=== PATIENT | male | born 1970 | race Caucasian/White ===

== ENCOUNTER 2017-07-10 17:25 | Emergency (ER) | payer OTHER ==
[~2017-07-10] VITALS: Ht 180.3 cm; Wt 86.4 kg
[~2017-07-10 17:25] MED LIST: ATARAX; ATARAX 10MG10 MG/TAB PO; CELEBREX 1100 MG/CAP PO; NORCO 325 MG-51 TAB PO; PEN-VEE K500 MG PO; PROMETHAZINE12.5 M5 PO; ZANTAC 150150 MG PO; ZANTAC 150MG T150 MG PO; ZOFRAN 4MG T4 MG/TAB PO; ZYRTEC 10MG10 MG PO; ZYRTEC5 MG PO
[2017-07-10 17:26] VITALS: BP 117/81
[2017-07-10] MEDS ORDERED: LEXAPRO 5MG5 MG (17:30)
[2017-07-10] MEDS ORDERED: KLONOPIN 0.5MG0.5 MG PO (17:30)
[2017-07-10] MEDS ORDERED: DESYREL 50MG50 MG PO (17:30)
[2017-07-10] MEDS ORDERED: CATAPRES 0.1MG0.1 MG PO (17:30)
[2017-07-10] MEDS ORDERED: MELATONIN5 M1 PO (17:30)
[2017-07-10] MEDS ORDERED: LEXAPRO20 MG PO (17:54)
[2017-07-10] MEDS ORDERED: CATAPRES0.3 MG PO (17:56)
[2017-07-10] MEDS ORDERED: VITAMIN D31000 I1 PO (17:56)
[2017-07-10 17:57] LABS: INFLUENZA A NEGATIVE; INFLUENZA B NEGATIVE
[2017-07-10] MEDS ORDERED: ZITHROMAX Z PA250 MG PO (18:18)
[2017-07-10 18:35] VITALS: PULSE 95; TEMP 99.7
== END 2017-07-10 18:58 | disposition home or self-care (01) ==
LOC: COL.ER 17:25
PROVIDERS: Physician Assistant
DX: J20.9 Acute bronchitis, unspecified (principal); F43.10 Post-traumatic stress disorder, unspecified; F17.210 Nicotine dependence, cigarettes, uncomplicated; Z90.49 Acquired absence of other specified parts of digestive tract

== ENCOUNTER 2020-05-04 21:30 | Inpatient (IN) | payer OTHER ==
[~2020-05-04] VITALS: Ht 180.3 cm; Wt 98.8 kg
[~2020-05-04 21:30] MED LIST changes: +CATAPRES 0.1MG0.1 MG PO; +CATAPRES0.3 MG PO; +DESYREL 50MG50 MG PO; +KLONOPIN 0.5MG0.5 MG PO; +LEXAPRO 5MG5 MG; +LEXAPRO20 MG PO; +MELATONIN5 M1 PO; +VITAMIN D31000 I1 PO; +ZITHROMAX Z PA250 MG PO
[2020-05-04 22:37] LABS: BASO # 0.1 (0.0-0.2); BASO % 0.5 % (0.0-2.0); EOS # 0.2 (0.0-0.7); GRAN # 13.7 (1.4-6.5); GRAN % 77.7 % (42.2-75.2); HEMATOCRIT 40.9 % (42.0-52.0); HEMOGLOBIN 13.9 g/dl (13.5-18.0); LYMPH # 2.5 (1.2-3.4); LYMPH % 14.2 % (20.0-51.0); MEAN CELL VOLUME 88 fl (80.0-100.0); MEAN CORPUSCULAR HEMOGLOBIN 30 pg (27.0-31.0); MEAN CORPUSCULAR HGB CONC 34 g/dl (33.0-37.0); MEAN PLATELET VOLUME 9.3 fl (7.4-10.4); MONO # 1.1 (0.1-0.6); MONO % 6.2 % (1.7-9.3); PLATELET COUNT 219 K/mm3 (130-400); RED BLOOD COUNT 4.64 M/mm3 (4.20-5.60)
[2020-05-04 22:46] LABS: ALANINE AMINOTRANSFERASE 26 U/L (4-49); ALBUMIN 4.3 gm/dL (3.5-5.0); ALKALINE PHOSPHATASE 111 U/L (50-136); ANION GAP 8 mmol/L (7-16); AST,SGOT 40 U/L (15-37); BILIRUBIN,TOTAL 2.5 mg/dL (0.0-1.0); BLOOD UREA NITROGEN 12 mg/dL (9-20); CALCIUM 9.2 mg/dL (8.4-10.2); CARBON DIOXIDE 27 mmol/L (22-30); CHLORIDE 104 mmol/L (98-107); CREATININE, serum 0.86 (0.66-1.25); GLUCOSE 156 mg/dL (74-106); LIPASE 32 U/L (23-300); POTASSIUM 3.7 mmol/L (3.4-5.0); SODIUM 138 mmol/L (137-145); TOTAL PROTEIN 7.8 gm/dL (6.4-8.2)
[2020-05-04 22:56] LABS: C-REACTIVE PROTEIN 26.3 mg/dL (0.0-0.9); TROPONIN-I < 0.012 ng/mL (0.000-0.035)
[2020-05-05] VITALS (13 sets, daily range): BP systolic 111–138; BP diastolic 65–85; PULSE 66–96; TEMP 97.5–98.7
[2020-05-05 00:01] LABS: COLLECTION METHOD CLEAN CATCH
[2020-05-05 00:14] LABS: MUCOUS Present /lpf; PH 6 (5-8); SQUAMOUS EPITHELIAL None Seen /hpf; URINE APPEARANCE Clear; URINE BACTERIA None Seen /hpf; URINE BILIRUBIN Negative (NEGATIVE); URINE BLOOD 2+ (NEGATIVE); URINE COLOR Yellow; URINE GLUCOSE Negative (NEGATIVE); URINE KETONE Trace (NEGATIVE); URINE LEUKOCYTE ESTERASE Negative (NEGATIVE); URINE NITRATE Negative (NEGATIVE); URINE PROTEIN(semi-quant) Negative (NEGATIVE); URINE UROBILINOGEN >=4.0 mg/dL (NEGATIVE)
--- NOTE | 2020-05-05 03:40 | NUR ---
Admitted to medical floor from OR-PACU, went from ER straight to surgery- had diagnostic laproscopy w/washing and garret drain placed-- VSS, states abd pain 7/10 after coughing, will give Dilaudid as ordered- active bowel sounds- wants jello-given,, IV fluids of LR at 100cc/hr to L/AC IV site, abd w/ 3 lap sites, glued- has garret drain ,no drainage at this time- was emptied in PACU.. No void yet- urinal at bedside
--- NOTE | 2020-05-05 06:17 | NUR ---
Resting- and pain 12/02-was given Dilaudid IV x2 since back from PACU- respiratory will bring up IS, pt C&DB , IV fluids at 100cc/hr, no void yet post-op, lap sites goodx3 no drainage- Praveen drain with scant drainage{was drained by PACU for 80cc}
--- NOTE | 2020-05-05 08:39 | NUR ---
Pt assessment complete. Pt sitting up in bed upon entry, he is A/O x4. His breathing is guarded due to pain. PRN Dilaudid administered and Percocet approximately 30 minutes later for continues pain. Pt is distended, +BS. Compression drain in place. Site CDI. Some nausea, but does not require Zofran. Has had a lot of intake since surgery. No BM. New IV started to Rhand. IVF infusing into RAC. No needs at this time. Call light within reach.
[2020-05-05 13:10] LABS: BASO % 0.2 % (0.0-2.0); GRAN # 10.5 (1.4-6.5); GRAN % 86.8 % (42.2-75.2); HEMATOCRIT 37.6 % (42.0-52.0); HEMOGLOBIN 12.5 g/dl (13.5-18.0); LYMPH # 1.2 (1.2-3.4); LYMPH % 10.2 % (20.0-51.0); MEAN CELL VOLUME 91 fl (80.0-100.0); MEAN CORPUSCULAR HEMOGLOBIN 30 pg (27.0-31.0); MEAN CORPUSCULAR HGB CONC 33 g/dl (33.0-37.0); MEAN PLATELET VOLUME 9.4 fl (7.4-10.4); MONO # 0.3 (0.1-0.6); MONO % 2.3 % (1.7-9.3); PLATELET COUNT 204 K/mm3 (130-400); RED BLOOD COUNT 4.15 M/mm3 (4.20-5.60)
[2020-05-05 13:27] LABS: ALBUMIN 3.8 gm/dL (3.5-5.0); BILIRUBIN,TOTAL 1.4 mg/dL (0.0-1.0); CALCIUM 8.6 mg/dL (8.4-10.2); CREATININE, serum 0.79 (0.66-1.25); POTASSIUM 4.2 mmol/L (3.4-5.0)
--- NOTE | 2020-05-05 13:47 | NUR ---
Director Radiation Oncology met with patient to discuss discharge planning. Patient lives in [place] with his four children ages 17, 16, 14, and 9. Patient has a fiance, Trinidad (ph#[phone]). Patient states his three years ago and his mother in law, Rama (ph#[phone]) is his DPOA-HC. Patient goes to [facility] for primary care and obtains medications from [facility]. Patient uses a CPAP and no other DME. Patient is independent with ADLS and plans to return home upon discharge. SW will continue to follow as needed.
--- NOTE | 2020-05-05 17:58 | NUR ---
Pt c/o epigastric midline pain, 11/01. PRN PO pain medications administered. Advised patient if pain worsens or does not improve to notify nursing staff. Does report passing gas. Pt encouraged to ambulate, pt requesting to do this tomorrow. Discussed with patient the benefit vs risk of this, pt agreaable to attempt to ambulate tonight. Will allow time for pain medications to take effect prior to getting out of bed. Will check back before shift change.
--- NOTE | 2020-05-05 18:36 | NUR ---
Pt up ambulating with fiance in hallways. Praveen drain secured to gown.
--- NOTE | 2020-05-05 19:45 | NUR ---
Pt was settled on his bed when this nurse went for a bedside handover. No further needs at this time.
[2020-05-06] VITALS (7 sets, daily range): BP systolic 97–123; BP diastolic 50–77; PULSE 54–99; TEMP 97.9–100.3
--- NOTE | 2020-05-06 02:58 | NUR ---
Pt assessment completed and charted. Meds provided as per AUG, tolerated well. Pt is settled on his bed, call light is on reach. No further needs at this time.
[2020-05-06 06:22] LABS: BASO % 0.4 % (0.0-2.0); EOS # 0.2 (0.0-0.7); EOS % 2.3 % (0-4.0); GRAN # 6.1 (1.4-6.5); GRAN % 60.6 % (42.2-75.2); HEMOGLOBIN 11.2 g/dl (13.5-18.0); LYMPH % 29.7 % (20.0-51.0); MEAN CELL VOLUME 90 fl (80.0-100.0); MEAN CORPUSCULAR HEMOGLOBIN 29 pg (27.0-31.0); MEAN CORPUSCULAR HGB CONC 33 g/dl (33.0-37.0); MEAN PLATELET VOLUME 9.4 fl (7.4-10.4); MONO # 0.7 (0.1-0.6); MONO % 6.6 % (1.7-9.3); PLATELET COUNT 194 K/mm3 (130-400); RED BLOOD COUNT 3.82 M/mm3 (4.20-5.60); REDCELL DISTRIBUTION WIDTH-CV 13.1 % (11.5-14.5)
[2020-05-06 06:24] LABS: HEMATOCRIT 34.5 % (42.0-52.0)
[2020-05-06 06:37] LABS: ALBUMIN 3.1 gm/dL (3.5-5.0); BILIRUBIN,TOTAL 0.8 mg/dL (0.0-1.0); CALCIUM 8.2 mg/dL (8.4-10.2); CREATININE, serum 0.84 (0.66-1.25); POTASSIUM 3.9 mmol/L (3.4-5.0); TOTAL PROTEIN 5.8 gm/dL (6.4-8.2)
--- NOTE | 2020-05-06 07:35 | NUR ---
Pt had an uneventful night, slept through out the night. Meds provided as per AUG. No further needs at this time.
--- NOTE | 2020-05-06 09:44 | NUR ---
PATIENT IS LAYING IN BED WITH HIS HOB INCREASED. PATIENT IS PASSING GAS BUT HAS NOT HAD A BOWEL MOVEMENT.
--- NOTE | 2020-05-06 13:48 | NUR ---
Primary nurse was assisted with [phone] patient care by [employer] student Tal Stratton and [employer] instructor Tifafny Jeter RN-.
--- NOTE | 2020-05-06 18:28 | NUR ---
PATIENT HAS HAD A PRETTY UNEVENTFUL DAY. PATIENT HAS REPORTED SOME PAIN BUT TORADOL AND PERCOCET WAS ABLE TO MANAGE HIS PAIN TODAY. PATIENT DID HAVE A BOWEL MOVEMENT TODAY THAT HE REPORTED PRETTY LOOSE. PATIENT'S DIET HAS BEEN ADVANCED TO A LOW FIBER DIET. PATIENT HAS ZOSYN RUNNING IN HIS IV BUT THEN LR IS INFUSING AT 100 MLS/HR. INCISIONS ARE CLEAN, DRY, AND INTACT. DRAIN IS STILL IN PLACE AND DRAINING. PATIENT TOOK A SPONGE BATH TODAY. PATIENT REFUSED NICODERM PATCH BECAUSE FIANCE BROUGHT HIS LOUCENGES. PATIENT DENIES ANY NEEDS AT THIS TIME. WILL REPORT OFF TO LOCK MASTER.
[2020-05-07] VITALS (20 sets, daily range): BP systolic 76–126; BP diastolic 49–67; PULSE 71–118; TEMP 98.7–102.9
[2020-05-07 07:10] LABS: ALBUMIN 2.7 gm/dL (3.5-5.0); CALCIUM 7.8 mg/dL (8.4-10.2); CREATININE, serum 1.12 (0.66-1.25); POTASSIUM 4.1 mmol/L (3.4-5.0); TOTAL PROTEIN 5.2 gm/dL (6.4-8.2)
--- NOTE | 2020-05-07 07:42 | NUR ---
Pt had an eventful night. Pressures remained low through the night, contacted provider who ordered a bolus. Pressures still remained low after initial bolus, so provider ordered hetastarch bolus. Pt became diaphoretic and very dry mouth throughout the night. Pt did desat to 88%, so 1L nc was placed on the patient to bring up his saturations. Pt did state he felt very poorly and that he would like to figure out what is going on, and why his pressures are so low. Pt has a JESUS drain that had purulent yellow drainage. This drain had an output of 350 through the night, and the patient had significant pain in the abdomen. It was soft, and not tender to touch. There are no other concerns. Report was given to GI Rodriguez.
--- NOTE | 2020-05-07 08:46 | NUR ---
Patient having increased pain. 02/01. Kidney function WNL. Am toradol & lovenox given by student nurse assisting in cares. called and notfied on patient conditions. He is aware of increased temp. Blood pressure improving. Not tachycardic. Patient Jesus drain sponge changed & JESUS drain having purulent/serous output. Lab called & made them aware of added on lactic & needing results on hemotology. Patient Ivf continue at 150ml/hr. Patient concerned about his dry mouth. Patient made aware of improtance of strict I&O & needing to use urinal to measure urine. Patient back to clears lisa to pain. Will closely montior.
[2020-05-07 09:06] LABS: BASO # 0.1 (0.0-0.2); BASO % 0.4 % (0.0-2.0); EOS # 0.3 (0.0-0.7); EOS % 2.4 % (0-4.0); GRAN # 10.4 (1.4-6.5); GRAN % 75.4 % (42.2-75.2); HEMOGLOBIN 10.4 g/dl (13.5-18.0); LYMPH % 14.8 % (20.0-51.0); MEAN CELL VOLUME 93 fl (80.0-100.0); MEAN CORPUSCULAR HEMOGLOBIN 30 pg (27.0-31.0); MEAN CORPUSCULAR HGB CONC 32 g/dl (33.0-37.0); MEAN PLATELET VOLUME 9.7 fl (7.4-10.4); MONO # 0.9 (0.1-0.6); MONO % 6.6 % (1.7-9.3); PLATELET COUNT 187 K/mm3 (130-400); RED BLOOD COUNT 3.47 M/mm3 (4.20-5.60); REDCELL DISTRIBUTION WIDTH-CV 13.2 % (11.5-14.5)
[2020-05-07 09:28] LABS: HEMATOCRIT 32.2 % (42.0-52.0)
--- NOTE | 2020-05-07 09:59 | NUR ---
Lactic & Wbc results called to . No new orders at this time
--- NOTE | 2020-05-07 11:34 | NUR ---
Initial visit; Patient thanked Chargeback Specialist for looking in on him and offering God's blessings and keeping him in her prayers.
--- NOTE | 2020-05-07 12:32 | NUR ---
rounded. Plan of care reviewed. Again reviewed with patient, visitor policy being 8 to 8. He is understanding. He continue to tolerate clears. Percocet for pain & fever. He continues to have low grade temp.
--- NOTE | 2020-05-07 13:32 | NUR ---
Primary nurse was assisted with [id number] patient care by [employer] student Tal Stratton and [employer] instructor Tiffany Jeter RN-.
--- NOTE | 2020-05-07 16:49 | NUR ---
Patient shivering. Temp increasing. 100.3. Next dose of percocet given with rating 6/10. Called doctor Alexa to give him an update. Orders obtained. Lab called for blood cultures & Wanda in CT to retreive patient for stat CT scan ordered. Patient continues to have purulent tinged Nadeem drain output. He is voiding adequately. Ivf infusing per orders. He did have complaints of nausea medicated with zofran per orders. Will await CT scan results.
--- NOTE | 2020-05-07 18:31 | NUR ---
Spoke again to . Made him aware of temp of 102.7. Tachycardic 116. Patient to begin vancocin & diflucan. Patient pain continues to be elevated. /. Dilaudid & toradol given per orders.
--- NOTE | 2020-05-07 19:22 | NUR ---
Vancomycin Initial Dosing Pharmacy Note Ordering provider: Ant Liu MD Indication/duration: Diverticulitis s/p washout, fever 102.9, increasing HR and RR Relevant comorbidities: LABS: SCr 1.12 and rising daily since admission, eCrCl ~90 mL/min today Recommendation: Loading dose: 2 grams on 05/07/20 Maintenance dose: 1.25 grams every 12 hours Trough goal: 15-20 ug/mL Pharmacy will continue to follow closely. Consider switching antibiotics to meropenem is condition deteriorates.
--- NOTE | 2020-05-07 19:30 | NUR ---
notifed of patient status. Continues tachycardia. Fever. Increase in O2 needs. Patient pain a 5/10 now. Diaphoretic. We discussed drain output. Ct scan results. Hospitalist consulted. notifed and patient reviewed in detail. Labs ordered. supervisor assembling also given an update on patient status. Bedside report was given to nirmala
[2020-05-07 20:01] LABS: BASO # 0.1 (0.0-0.2); BASO % 0.3 % (0.0-2.0); EOS # 0.4 (0.0-0.7); GRAN # 14.8 (1.4-6.5); GRAN % 84.4 % (42.2-75.2); HEMOGLOBIN 11.7 g/dl (13.5-18.0); LYMPH # 1.3 (1.2-3.4); LYMPH % 7.4 % (20.0-51.0); MEAN CELL VOLUME 91 fl (80.0-100.0); MEAN CORPUSCULAR HEMOGLOBIN 30 pg (27.0-31.0); MEAN CORPUSCULAR HGB CONC 33 g/dl (33.0-37.0); MEAN PLATELET VOLUME 9.1 fl (7.4-10.4); MONO % 5.4 % (1.7-9.3); PLATELET COUNT 197 K/mm3 (130-400); RED BLOOD COUNT 3.91 M/mm3 (4.20-5.60); REDCELL DISTRIBUTION WIDTH-CV 13.2 % (11.5-14.5)
[2020-05-07 20:07] LABS: CREATININE, serum 0.93 (0.66-1.25); POTASSIUM 3.5 mmol/L (3.4-5.0)
[2020-05-07 20:12] LABS: HEMATOCRIT 35.4 % (42.0-52.0)
--- NOTE | 2020-05-07 20:16 | NUR ---
rounded. Orders obtained. UA collected. Nadeem drain output collected. Consent obtained. Patient denies questions or concerns. His supportive fiance at bedside. Patient aware he needs to now be NPO. Shannan to resumes cares
[2020-05-07 20:29] LABS: COLLECTION METHOD CLEAN CATCH
--- NOTE | 2020-05-07 20:45 | NUR ---
Pt off to OR at this time.
[2020-05-07 20:50] LABS: PH 5 (5-8); SQUAMOUS EPITHELIAL None Seen /hpf; URINE APPEARANCE Clear; URINE BACTERIA None Seen /hpf; URINE BILIRUBIN Negative (NEGATIVE); URINE BLOOD 2+ (NEGATIVE); URINE COLOR Yellow; URINE GLUCOSE Negative (NEGATIVE); URINE KETONE Negative (NEGATIVE); URINE LEUKOCYTE ESTERASE Negative (NEGATIVE); URINE NITRATE Negative (NEGATIVE); URINE PROTEIN(semi-quant) Negative (NEGATIVE); URINE RBC 0-2 /hpf; URINE UROBILINOGEN Negative (NEGATIVE); URINE WBC 0-2 /hpf
--- NOTE | 2020-05-07 22:09 | NUR ---
Report given to GI Ordaz
[2020-05-08] VITALS (90 sets, daily range): BP systolic 90–125; BP diastolic 52–90; PULSE 109–123; TEMP 98.5–103.1; O2SAT 92–99
--- NOTE | 2020-05-08 00:50 | NUR ---
PT ARRIVED TO ROOM FROM PACU, PT ALERT AND ORIETNED X4, DROWSY, IMPULSIVE. PT NOTED WITH TEMP OF 103.1, PRN TYLNEOL GIVEN. NEW COLOSTOMY SITE WITH PINK STOMA, BLOOD NOTED TO BAG, DRESSING WITH BRIGHT RED DRAINAGE NOTED AND SHADOWED. LR RUNNING AT 150ML/HR AND FENTANYL EPIDURAL IN PLACE TO BACK RUNNING CONITNOUSLY AT THIS TIME. PT ORIENTED TO ROOM. STATES THAT HE HAS TO PEE, REMINDED PT THAT HE HAS A HUDSON, SMALL AMOUNT OF SHAKIR URINE NOTED TO HUDSON BAG AT TIME OF ARRIVAL. SPOKE WITH ESAU PHYSICIAN, STATES TO REPEAT LABS AND CALL FOR URINE OUTPUT LESS THAN 50CC/HR, CONTINUE IV FLUIDS AND IV ZOSYN.
--- NOTE | 2020-05-08 02:05 | NUR ---
DR. CLARK CALLED, OK TO TRANSFER TO SURGICAL FLOOR.
[2020-05-08 03:21] LABS: HEMATOCRIT 41.6 % (42.0-52.0); MEAN CELL VOLUME 90 fl (80.0-100.0); MEAN CORPUSCULAR HEMOGLOBIN 30 pg (27.0-31.0); MEAN CORPUSCULAR HGB CONC 33 g/dl (33.0-37.0); PLATELET COUNT 246 K/mm3 (130-400); RED BLOOD COUNT 4.63 M/mm3 (4.20-5.60); REDCELL DISTRIBUTION WIDTH-CV 13.1 % (11.5-14.5)
[2020-05-08 03:27] LABS: CALCIUM 7.7 mg/dL (8.4-10.2); CREATININE, serum 0.91 (0.66-1.25); POTASSIUM 3.7 mmol/L (3.4-5.0)
--- NOTE | 2020-05-08 03:30 | NUR ---
Pt arrived to the floor via stretcher. Pt was transported to the room bed by staff members. Pt was encourged to take deep breaths. Pt incision site had a small amount of drainage which was noted on arrival. Pt urine is a peach color but clear. Pt has been able to tolerate a few ice chips. Pt epidural is still in place and infusing. Pt currently has Zosyn and LR infusing. Pt has no other concerns at this time. Pt temperature is currently at 101.9 pt will closely be monitored for a spike in his temp. Pt has his call light within reach and his bed is in lowest position.
[2020-05-08 03:35] LABS: HEMOGLOBIN 13.9 g/dl (13.5-18.0)
[2020-05-08 03:53] LABS: BAND 12 % (0-10); LYMPHOCYTE 7 % (20.0-51.0); NEUTROPHILS 80 % (42.0-75.2); PLATELET ESTIMATE NORMAL (NORMAL)
--- NOTE | 2020-05-08 07:20 | NUR ---
Pt is curretly resting in bed. I reported off to GI Bangura. Pt has no compliants of pain of pain.
[2020-05-08 08:31] LABS: BASO # 0.1 (0.0-0.2); BASO % 0.3 % (0.0-2.0); EOS % 0.1 % (0-4.0); GRAN % 84.6 % (42.2-75.2); HEMATOCRIT 40.9 % (42.0-52.0); HEMOGLOBIN 13.6 g/dl (13.5-18.0); LYMPH % 8.9 % (20.0-51.0); MEAN CELL VOLUME 91 fl (80.0-100.0); MEAN CORPUSCULAR HEMOGLOBIN 30 pg (27.0-31.0); MEAN CORPUSCULAR HGB CONC 33 g/dl (33.0-37.0); MEAN PLATELET VOLUME 9.3 fl (7.4-10.4); MONO # 1.2 (0.1-0.6); MONO % 5.3 % (1.7-9.3); PLATELET COUNT 275 K/mm3 (130-400); RED BLOOD COUNT 4.52 M/mm3 (4.20-5.60); REDCELL DISTRIBUTION WIDTH-CV 13.2 % (11.5-14.5)
[2020-05-08 08:54] LABS: ALBUMIN 2.8 gm/dL (3.5-5.0); BILIRUBIN,TOTAL 1.4 mg/dL (0.0-1.0); CALCIUM 7.9 mg/dL (8.4-10.2); CREATININE, serum 0.95 (0.66-1.25); POTASSIUM 3.8 mmol/L (3.4-5.0); TOTAL PROTEIN 5.4 gm/dL (6.4-8.2)
--- NOTE | 2020-05-08 11:55 | NUR ---
PATIENT'S TEMP WENT UP TO 100.9, PATIENT DENIES FEELING HOT, NOT CURRENTLY DIAPHORETIC, ROOM TEMP DOWN, FAN ON PATIENT. GAVE PRN TYLENOL, TWO TABS. WILL MONITOR. PATIENT SLEEPING.
--- NOTE | 2020-05-08 19:49 | NUR ---
PT REPORTS NAUSEA, NO EMESIS. IS ALERT AND ORIENTED X4, IRAM (S.O) AT BEDSIDE. HAS IVF TO RIGHT FOREARM INFUSING, AREA SWOLLEN AND SITED DC'D WITH ANGIOCATH INTACT. HAS IV SITE TO RIGHT AC AND CONNECTED IVF TO THIS, INFUSING WITHOUT PROBLEM. ZOFRAN GIVEN FOR NAUSEA. ABD DISTENDED WITH SCANT BOWEL SOUNDS NOTED. PT GRUNTING WITH RESPIRATIONS DUE TO PAIN IN ABD, 8/10. HAS EPIDURAL INFUSING AT 8ML/HR AND HAS USED BOLUS SEVERAL TIMES. ABLE TO MINIMALLY ROLL TO SIDE TO VISUALIZE EPIDURAL SITE. HAS HOB AT 30 DEGREES. WEARING OXYGEN AT 2L/NC. OSTOMY WITH MINIMAL LIQUID DRAINAGE IN BAG, STOMA RED. HUDSON TO BSD WITH LIGHT SHAKIR URINE. HAS SL TO LEFT AC FLUSHES WELL. USING IS OCCASIONALLY, UNABLE TO TAKE DEEP INSPIRATION.
--- NOTE | 2020-05-08 20:15 | NUR ---
TYLENOL GIVEN FOR FEVER.
--- NOTE | 2020-05-08 20:58 | NUR ---
Spoke with patient and significant other regarding visiting hours. They relay Dr Mast okayed for her to spend the night to "aid in patients recovery". Did speak with athlete manager Anne Hernandez regarding significant other spending the night and request was denied. Relayed information to pt and S.O. and discussed visitor policy again at this time.
--- NOTE | 2020-05-08 21:39 | NUR ---
PHENERGAN 12.5MG IV PIGGYBACK GIVEN FOR CONTINUED COMPLAINT OF NAUSEA. DISCUSSED NGT POSSIBILITY, PT REPORTS HE DOESN'T WANT THAT AT THIS TIME.
[2020-05-09 00:06] VITALS: BP 105/77; PULSE 112; TEMP 101.6
--- NOTE | 2020-05-09 00:21 | NUR ---
RESPIRATIONS LESS LABORED AND APPEARS TO BE TRYING TO SLEEP. IV ANTIBIOTIC CONNECTED TO LEFT AC IV SITE AND INFUSING WITHOUT PROBLEM. STILL HAS A FEVER 101.6, TOO EARLY FOR TYLENOL.
--- NOTE | 2020-05-09 03:00 | NUR ---
PT ASKING FOR PAIN AND NAUSEA MEDS. ABD DISTENDED WITH ABSENT BOWELS SOUNDS NOTED AT THIS TIME.
--- NOTE | 2020-05-09 03:20 | NUR ---
REPOSITIONED UP IN BED WITH ASSIST OF 2. STILL GRUNTING WITH BREATHS WITH MOVEMENT. MEDICATED WITH PHENERGAN IV PRIOR TO MOVING FOR CONTINUED NAUSEA. EMPTIED 30CC OF THIN FLUID FROM OSTOMY AT THIS TIME.
[2020-05-09 03:23] VITALS: BP 118/79; PULSE 112; TEMP 99.3
--- NOTE | 2020-05-09 03:29 | NUR ---
Pt still grunting with respirations and rates pain 9/10. Placed on continuous pulse ox and medicated with Morphine 4mg IVP at this time.
--- NOTE | 2020-05-09 04:00 | NUR ---
PT REPORTS "SOME" RELIEF OF PAIN WITH MORPHINE.
--- NOTE | 2020-05-09 06:00 | NUR ---
URINE OUTPUT IMPROVED AND COLOR IS NETWORK AND THREAT SUPPORT SPECIALIST. STILL HAVING NAUSEA AND PAIN. OSTOMY WITH NO FURTHER OUTPUT.
[2020-05-09 07:19] LABS: HEMATOCRIT 38.6 % (42.0-52.0); MEAN CELL VOLUME 91 fl (80.0-100.0); MEAN CORPUSCULAR HEMOGLOBIN 31 pg (27.0-31.0); MEAN CORPUSCULAR HGB CONC 34 g/dl (33.0-37.0); MEAN PLATELET VOLUME 9.3 fl (7.4-10.4); PLATELET COUNT 275 K/mm3 (130-400); RED BLOOD COUNT 4.24 M/mm3 (4.20-5.60); REDCELL DISTRIBUTION WIDTH-CV 13.3 % (11.5-14.5)
[2020-05-09 07:24] LABS: MAGNESIUM 1.8 mg/dL (1.6-2.3); POTASSIUM 3.7 mmol/L (3.4-5.0)
[2020-05-09 07:39] VITALS: BP 114/73; PULSE 107; TEMP 101.4
--- NOTE | 2020-05-09 08:13 | NUR ---
Patient resting in bed. Complaints of pain and nausea. Zofran given and epidural bolus dose given with his patient controlled button. Epidrual infuses at 8ml/hr. Ng to DD, urine output adequate. Patient abdomen is distended. Bowels quiet. Colostomy with no output. Really educated and reviewed with patient the importance of coughing,deep breathing & using his IS. He was aware that splinting his abdomen with pillow can be helpful. We discussed importamce of getting out of bed today. He is willing to try once his significant other arrives today. Gave his Mother in law Radha and update on the phone. Patient also given a colostomy education packet, will try to educate more when significant other arrives. Scds ble. Will continue to closely monitor.
[2020-05-09 10:42] VITALS: BP 128/80; PULSE 112; TEMP 100
--- NOTE | 2020-05-09 10:45 | NUR ---
Matilda significant other at bedside. has rounded. Anesthesia made adjustments to the epidraul settings. infusing now at a high rate 11ml/hr. Dressing to back CDI. Patient up to the chair. He was a 2 assist, nausea with activity, no emesis. Belching noted. He remains NPO. Patient brushed his teeth. He was given a full bed bath, harper care provided & new linens. Patient using his IS correctly. He wanted to get back to bed, encouraged him to sit up in chair for at least one hour.
--- NOTE | 2020-05-09 11:45 | NUR ---
Patient not wanting to sit up in chair any longer. Patient assisted back to bed and did well. Still having abdominal pain & nausea. Significant other at bedside.
[2020-05-09 15:18] VITALS: BP 123/79; PULSE 104; TEMP 100.5
--- NOTE | 2020-05-09 17:00 | NUR ---
given updated vitals. He is aware of continued low grade temp after tylenol & slight tachycardia. We also discussed his quiet bowels & continued belching. Protonix given per orders. Benydrl IV also given for the reddness to his hands & the history patient has of angioedema.
--- NOTE | 2020-05-09 19:39 | NUR ---
Patient sat up in chair again this evening. He did much better when up this time. Less pain. Still having nausea, but slightly improved. Zofran per orders. Abdomen remains distended. bowels quiet. New colostomy appliace applied. No skin irritations noted. Stoma pink, some mucous present. 10mls of watery output with slight odor. Patient given education, he was willing to listen & try to learn. midline incision dressing changed with gauze & paper tape. Palatine intact with slight drainage. Iv antibioitcs & fluids continue. Ng to DD with josiane output. Scds ble. He continues to use IS. was notifed of patient condition/history of angioedema. Patient having concerns about the reddness on his hand and some reddness noted to his face. He has taken zyrtec & attrax for 25 years to prevent reoccurance and has concerns about missed does. Orders to continue both medications after Iv benydryl did not help in the reddness to his hands. Anesthesia Rom way also made aware. Continous pulse ox on patient to closely monitor O2 sats. His supportive significant other at bedside.
[2020-05-09 20:29] VITALS: BP 116/75; PULSE 100; TEMP 98.6
--- NOTE | 2020-05-09 22:48 | NUR ---
Atarx and zyrtec given. Patient says it will take a little bit to get in his system and get caught up. Patient still on continuous pulse oxymetry monitoring. Zofran given for nausea. Some air was noted in the ostomy bag. Patient is alert and oriented.
[2020-05-10] VITALS (12 sets, daily range): BP systolic 91–143; BP diastolic 70–82; PULSE 77–114; TEMP 98.3–100.4
--- NOTE | 2020-05-10 03:24 | NUR ---
EPIDURAL CASSETTE IS EMPTY, ANESTHESIA PAGED.
--- NOTE | 2020-05-10 03:28 | NUR ---
RETURN CALL FROM [facility], NOTIFIED OF EPIDURAL CASSETTE. WILL CHECK WITH NUT SORTER OPERATOR IF PHARMACY HAS ANOTHER CASSETTE AVAILABLE AND CALL HIM BACK.
--- NOTE | 2020-05-10 04:44 | NUR ---
Rom Eduardo in to refill epidural. Directed to take Hourly blood pressures and call if systolic is under 100. Patient still in pain but states it is getting better.
--- NOTE | 2020-05-10 06:02 | NUR ---
Patient had 450 ml of output from his harper and some air out of his colostomy. Patient still denies the need for morphine.
[2020-05-10 06:47] LABS: HEMATOCRIT 37.6 % (42.0-52.0); HEMOGLOBIN 11.9 g/dl (13.5-18.0); MEAN CELL VOLUME 93 fl (80.0-100.0); MEAN CORPUSCULAR HEMOGLOBIN 30 pg (27.0-31.0); MEAN CORPUSCULAR HGB CONC 32 g/dl (33.0-37.0); MEAN PLATELET VOLUME 9.5 fl (7.4-10.4); PLATELET COUNT 278 K/mm3 (130-400); RED BLOOD COUNT 4.03 M/mm3 (4.20-5.60); REDCELL DISTRIBUTION WIDTH-CV 13.4 % (11.5-14.5)
[2020-05-10 06:56] LABS: CALCIUM 7.8 mg/dL (8.4-10.2); CREATININE, serum 1.01 (0.66-1.25); POTASSIUM 3.6 mmol/L (3.4-5.0)
--- NOTE | 2020-05-10 09:18 | NUR ---
PT IS A&O. NOTED A LOW GRADE TEMP OF 99.7, GAVE PRN TYLENOL. VSS. HEAD AND TOE ASSESSMENT COMPLETE SEE NOTES. COLEOSTOMY PRODUCING GAS AND SMALL AMOUNTS OF LIQUID BROWN STOOL. HUDSON TO DEPENDENT DRAINAGE WITH CLEAR YELLOW URINE. EPIDURAL RUNNING AT 10CC/HR. PT NPO. PICC LINE WILL BE PLACED TODAY THEN RECIEVE TPN. PAIN CONTROLLED. IV IN L AND R AC. PT SITTING UP IN BED WITH CALL LIGHT IN REACH.
--- NOTE | 2020-05-10 10:00 | NUR ---
Actor Understudy met with the patient to follow up with the patient. The patient plans to return home at discharge. SW contacted the patient's Trinidad herrera to follow up regarding the discharge plan, left message. SW staffed with the patient's nurse. The patient to get a PICC placed for TPN.
--- NOTE | 2020-05-10 10:12 | NUR ---
Initial visit; Patient thanked Film Touch Up Inspector for looking in on him and offering God's blessings and to keep him in her prayers.
[2020-05-10 11:42] LABS: ALBUMIN 2.8 gm/dL (3.5-5.0); BILIRUBIN,TOTAL 0.8 mg/dL (0.0-1.0); CALCIUM 7.9 mg/dL (8.4-10.2); CREATININE, serum 1.02 (0.66-1.25); POTASSIUM 3.8 mmol/L (3.4-5.0); TOTAL PROTEIN 5.7 gm/dL (6.4-8.2)
[2020-05-10 11:49] LABS: PRE ALBUMIN 6.6 mg/dL (17.6-36.0)
--- NOTE | 2020-05-10 20:30 | NUR ---
Pt currently lying in bed. Pt spouse was at his bedside but she went home. The only request the pt had was ice chips. Pt has his call light within reach and his bed is in lowest position. Pt had minimal output from his colostomy at this time.
--- NOTE | 2020-05-10 21:00 | NUR ---
Pt currently resting in bed. Pt did have complaints of nausea and when he was able he was given something for nausea. Pt did have some complaints in which were not new. He stated that epidural did have a little buring but he stated that it was checked earlier in shift by anesthesia. Pt has his call light within reach.
[2020-05-11 04:23] VITALS: BP 137/87; PULSE 96; TEMP 98.4
--- NOTE | 2020-05-11 04:50 | NUR ---
Pt currently resting in bed. Pt only complained of nausea twice during the shift. Pt has no concerns at this time and his call light is within reach.
[2020-05-11 07:37] LABS: HEMOGLOBIN 10.3 g/dl (13.5-18.0); MEAN CELL VOLUME 94 fl (80.0-100.0); MEAN CORPUSCULAR HEMOGLOBIN 30 pg (27.0-31.0); MEAN CORPUSCULAR HGB CONC 32 g/dl (33.0-37.0); MEAN PLATELET VOLUME 9.4 fl (7.4-10.4); PLATELET COUNT 250 K/mm3 (130-400); RED BLOOD COUNT 3.44 M/mm3 (4.20-5.60); REDCELL DISTRIBUTION WIDTH-CV 13.4 % (11.5-14.5)
[2020-05-11 07:40] LABS: HEMATOCRIT 32.2 % (42.0-52.0)
[2020-05-11 07:43] LABS: ALBUMIN 2.6 gm/dL (3.5-5.0); BILIRUBIN,TOTAL 0.7 mg/dL (0.0-1.0); CALCIUM 7.5 mg/dL (8.4-10.2); CREATININE, serum 0.86 (0.66-1.25); MAGNESIUM 2.1 mg/dL (1.6-2.3); PHOSPHOROUS 3.6 mg/dL (2.5-4.5); POTASSIUM 3.6 mmol/L (3.4-5.0); TOTAL PROTEIN 5.1 gm/dL (6.4-8.2)
[2020-05-11 07:53] VITALS: BP 129/81; PULSE 102; TEMP 101.2
--- NOTE | 2020-05-11 08:00 | NUR ---
PT A&O. VSS WITH ELEVATED TEMP AT 101.2, GIVE PRN TYLENOL. HEAD TO TOE ASSESSMENT DONE, SEE NOTES. EPIDURAL RUNNING AT 10, PT STILL REPORT PAIN, USE DEMAND DOSE FREQUENTLY. ANESTHESIA PAGED REGARDING NEAR EMPTY BAG. CHOLEOSTOMY PRODUCING GAS AND SOME LIQUID STOOL. ABD DISTENDED AND TENDER TO TOUCH. BOWEL SOUNDS HYPOACTIVE. CHANGED MIDLINE DRESSING WITH 4X4 AND HYPAFIX. COMPLAIN OF NAUSEA TREAT WITH PRN NAUSEA MED. NPO, PT RECIEVE TPN THROUGH RIGHT UPPER ARM PICC LINE. EMPTIED HUDSON, NOTED GOOD URINE OUTPUT. NO OTHER NEEDS. CALL OUT IN REACH
[2020-05-11 08:46] LABS: BAND 4 % (0-10); EOSINOPHIL 2 % (0-4); LYMPHOCYTE 26 % (20.0-51.0); NEUTROPHILS 60 % (42.0-75.2)
[2020-05-11 08:48] LABS: PLATELET ESTIMATE NORMAL (NORMAL)
[2020-05-11 08:49] LABS: HYPOCHROMIA 1+
--- NOTE | 2020-05-11 10:55 | NUR ---
PATIENT'S EPIDURAL IS ALARMING EMPTY. EPIDURAL WAS INFUSING AT 10CC/HR. PATIENT USING EPIDURAL BUTTON FREQUENTLY AND SEEMS TO HAVE A LOW TOLERANCE FOR PAIN. PATIENT GRUNTS OCCATIONALLY, EVEN AT REST. PAGED ANESTHESIA. GAVE PRN 4MG IV MORPHINE.
--- NOTE | 2020-05-11 11:00 | NUR ---
ANESTHESIA NOW AT BEDSIDE REPLACING EPIDURAL BAG. ANESTHESIA INQUIRED ABOUT WHEN EPIDURAL WOULD BE DC'D. PATIENT IS ON DAY 4 WITH EPIDURAL AND STILL REQUIRING A LOT OF EPIDURAL NARCOTIC
[2020-05-11 11:26] VITALS: BP 139/83; PULSE 100; TEMP 99.6
[2020-05-11 15:58] VITALS: BP 129/89; PULSE 100; TEMP 101.1
--- NOTE | 2020-05-11 17:00 | NUR ---
PATIENT REQUESTING MORE NAUSEA MEDS, GIVEN. PATIENT STOOD AT BEDSIDE AND BURPED A LOT. PATIENT HAS ALSO BEEN UP TO THE BEDSIDE CHAIR TWICE TODAY AND BELCHED A LOT WITH ACTIVITY. ABD IS STILL DISTENDED. PATIENT C/O PAIN, EPIDURAL BUTTON USED. EPIDURAL IS STILL INFUSING AT 10CC/HR. IV LASIX WORKED WELL. PATIENT PUT OUT 1,100 OF CLEAR YELLOW URINE. I&O DOCUMENTED. ALSO NOTED PATIENT TO HAVE INCREASED TEMP OF 101, GAVE PRN TYLENOL. ROOM TEMP TURNED DOWN. FAN ON PATIENT. REMOVED ALL BLANKETS EXCEPT SHEET. NOW AT BEDSIDE. OSTOMY PRODUCING GAS AND SMALL AMOUNTS OF LIQUID STOOL. WILL CONTINUE TO MONITOR.
[2020-05-11 19:08] VITALS: BP 151/83; PULSE 113; TEMP 100.7
--- NOTE | 2020-05-11 20:47 | NUR ---
COLOSTOMY IN PLACE, OBSERVED SCANT AMOUNT OF LIQUID OUTPUT. EPIDURAL IN PLACE. REQUESTED/GIVEN ZOFRAN, SEE eMAR.
[2020-05-12] VITALS (7 sets, daily range): BP systolic 113–140; BP diastolic 66–86; PULSE 96–103; TEMP 98.4–100.6
[2020-05-12 06:58] LABS: HEMOGLOBIN 11.5 g/dl (13.5-18.0); MEAN CELL VOLUME 92 fl (80.0-100.0); MEAN CORPUSCULAR HEMOGLOBIN 30 pg (27.0-31.0); MEAN CORPUSCULAR HGB CONC 33 g/dl (33.0-37.0); MEAN PLATELET VOLUME 9.2 fl (7.4-10.4); PLATELET COUNT 281 K/mm3 (130-400); RED BLOOD COUNT 3.82 M/mm3 (4.20-5.60); REDCELL DISTRIBUTION WIDTH-CV 13.4 % (11.5-14.5)
[2020-05-12 07:03] LABS: HEMATOCRIT 35.1 % (42.0-52.0)
[2020-05-12 07:45] LABS: ALBUMIN 2.8 gm/dL (3.5-5.0); BILIRUBIN,TOTAL 0.8 mg/dL (0.0-1.0); CALCIUM 7.7 mg/dL (8.4-10.2); CREATININE, serum 0.7 (0.66-1.25); MAGNESIUM 2.3 mg/dL (1.6-2.3); PHOSPHOROUS 3.6 mg/dL (2.5-4.5); POTASSIUM 3.5 mmol/L (3.4-5.0); TOTAL PROTEIN 5.6 gm/dL (6.4-8.2)
[2020-05-12 07:52] LABS: PRE ALBUMIN 9.2 mg/dL (17.6-36.0)
[2020-05-12 08:10] LABS: BAND 4 % (0-10); EOSINOPHIL 5 % (0-4); LYMPHOCYTE 17 % (20.0-51.0); NEUTROPHILS 70 % (42.0-75.2)
[2020-05-12 08:11] LABS: HYPOCHROMIA 1+; PLATELET ESTIMATE NORMAL (NORMAL)
--- NOTE | 2020-05-12 09:30 | NUR ---
Called doctor Alexa update given & orders obtained. He was made aware of patient elevated WBC. Continued low grade temp & tachycardia. Ct scan made aware of orders. Patient up to the chair this am & Assisted with hygeine & fresh linenes. He contineus to have abdominal pain. He did have output from ostomy.
--- NOTE | 2020-05-12 10:41 | NUR ---
ATEMOTED TO CALL DOCTOR XIE, NO VOICEMAIL BOX
--- NOTE | 2020-05-12 11:40 | NUR ---
Patient tolerated NG tube placement. He did have emesis with insertion. Large amount of dark green output. obtained. Patient assisted with hygiene. plan of care reviewed
--- NOTE | 2020-05-12 11:48 | NUR ---
Gallery Or Museum Attendant contacted the patient's fianceTrinidad to introduce oneself. She does not have any questions or need any resources at this time.
--- NOTE | 2020-05-12 12:00 | NUR ---
Doctor Alexa paz. Plan of care reviewed. I discussed with him Zosyn had fallen off Emar, orders to continue.I discussed with Pharmacy and One bag of zosyn given at 200ml/hr and then patient to continue at slow rate of 25 ml/hr. Discussed new fluconazole with patient.
--- NOTE | 2020-05-12 12:42 | NUR ---
DISCONTINUED EPIDURAL PER ORDERS. TIP INTACT, PT TOLERATED WELL.
--- NOTE | 2020-05-12 14:00 | NUR ---
Again called Doctor Liu. Update on Patient midline incision given, below the forth staple from the top purulent draiange noted. Orders to DC one staple obtained and completed. Gauze dressing applied with paper tape. Patient has some blistering noted to distal incisonsm which is why papertape was used to prevent further skin irritation. No wet to dry used because the was not an open area to pack. New colostomy appliance applied larger wafer used 2.75. made aware of irritation at 10. Cavilon wipes used. Previous wafer was starting to leak. Patient not interested in colostomy education this afternoon. He was to worn out.
--- NOTE | 2020-05-12 18:30 | NUR ---
Patient resting in bed with significant other at bedside. Patient NG remains to LIS. Upper abdominal quadrants bowels audible. Lower quadrants quiet. Patient Colostomy output had stopped. No output late this afternoon. Sushma to FLAKITA snell, he had adequate output after lasix. Tpn per orders to [facility] in [facility]. was notifed and orders for dilaudid was increased. The increased dose did improve pain. Pain rating to a 6/7 vs 8/9. Sushma to resume cares.
--- NOTE | 2020-05-12 23:00 | NUR ---
Pt is currently lying in bed. Pt did stand up for a little while to try to get rid of some of the gas. Pt abdomen does feel very distended. Pt NG tube was verifed through auscultation. Pt dressing was changed on his midline incision. Pt tolerated this well. pt colostomy has not had much output at all. Dr. Shin was notifed about the pt status and he just wasnted him monitored and encourge him to get up. Pt has his call light within reach. Pt has been given pain medication when requested. He also requested nausea medication as well.
--- NOTE | 2020-05-12 23:45 | NUR ---
Pt was assisted with standing. At this time pt was able to get a little output out of his colostomy. Pt stated that his pain is getting better but it still hurts. He has his call light within reach. Pt harper was discontinued and pt tolerated well. Pt has voided since. He has his call light within reach.
[2020-05-13 04:37] VITALS: BP 146/86; PULSE 92; TEMP 98.6
--- NOTE | 2020-05-13 07:23 | NUR ---
Reported off to GI Turcios. Pt currently lying in bed and has his call light withinr each.
[2020-05-13 08:06] VITALS: BP 149/81; PULSE 88; TEMP 98.7
[2020-05-13 08:42] LABS: HEMATOCRIT 37.1 % (42.0-52.0); HEMOGLOBIN 10.6 g/dl (13.5-18.0); MEAN CORPUSCULAR HEMOGLOBIN 34 pg (27.0-31.0); MEAN CORPUSCULAR HGB CONC 29 g/dl (33.0-37.0); MEAN PLATELET VOLUME 10.3 fl (7.4-10.4); PLATELET COUNT 306 K/mm3 (130-400); REDCELL DISTRIBUTION WIDTH-CV 14.3 % (11.5-14.5)
[2020-05-13 08:48] LABS: MEAN CELL VOLUME 120 fl (80.0-100.0)
[2020-05-13 10:35] LABS: BAND 5 % (0-10); EOSINOPHIL 4 % (0-4); LYMPHOCYTE 11 % (20.0-51.0); NEUTROPHILS 79 % (42.0-75.2); NUCLEATED RED BLOOD CELL 2 (0-6)
[2020-05-13 11:20] VITALS: BP 129/75; PULSE 93; TEMP 99
[2020-05-13 13:19] LABS: ALBUMIN 2.8 gm/dL (3.5-5.0); BILIRUBIN,TOTAL 0.6 mg/dL (0.0-1.0); CALCIUM 7.7 mg/dL (8.4-10.2); CREATININE, serum 0.72 (0.66-1.25); MAGNESIUM 2.2 mg/dL (1.6-2.3); POTASSIUM 4.1 mmol/L (3.4-5.0); TOTAL PROTEIN 5.8 gm/dL (6.4-8.2)
[2020-05-13 15:38] VITALS: BP 136/82; PULSE 92; TEMP 98.9
--- NOTE | 2020-05-13 18:44 | NUR ---
Patient resting in bed at this time. Patient is alert and oriented, answers questions appropriately. Patient started the shift with an NG to LIS, small to moderate amount of gastric drainage in cannister. NG tube was inadvertantly pulled out while up with PT, attending did not give the order to replace it. Patient had a small amount of emesis this morning while attempting to get up with therapy, has not had any since then. Patient reports that he still feels nauseous, but it is managable and has not asked for PRN medication. TPN infusing per order. Patient currently reports pain and nausea are tolerable, call light within reach.
[2020-05-13 20:00] VITALS: BP 142/79; PULSE 95; TEMP 99
--- NOTE | 2020-05-13 20:53 | NUR ---
Pt resting in bed. Pt was given pain medication when he requested. Pt stated that he was very tired and really wanted to sleep. Pt dressing did have some drainage. Pt refused dressing change at this time but did state that he would allow me to do it later. Pt was also offered to go for a short walk but pt declined and stated that we could try this later as well. Pt does have a small amount in his colostomy bag. Pt has his call light within reach and is currently resting in bed.
[2020-05-14] VITALS: BP 136/84; PULSE 92; TEMP 97.9
[2020-05-14 04:00] VITALS: BP 99/83; PULSE 76; TEMP 98.6
--- NOTE | 2020-05-14 06:15 | NUR ---
Pt has slept well throughout the night. He stated this is the best night he has had in a while. I have been able to empty a total of 350 out of his colostomy. Pt has been getting IV pain medication throughout the night but has no had any nausea. Pt has his call light within reach. Pt blood glucose level was at 88 so pt was given apple juice and jello at this time.
[2020-05-14 06:58] LABS: MEAN CORPUSCULAR HEMOGLOBIN 30 pg (27.0-31.0); MEAN CORPUSCULAR HGB CONC 32 g/dl (33.0-37.0); RED BLOOD COUNT 3.72 M/mm3 (4.20-5.60); REDCELL DISTRIBUTION WIDTH-CV 13.7 % (11.5-14.5)
[2020-05-14 07:00] LABS: HEMATOCRIT 34.6 % (42.0-52.0); MEAN CELL VOLUME 93 fl (80.0-100.0); PLATELET COUNT 407 K/mm3 (130-400)
[2020-05-14 07:01] LABS: BILIRUBIN,TOTAL 0.6 mg/dL (0.0-1.0); CREATININE, serum 0.67 (0.66-1.25); POTASSIUM 4.6 mmol/L (3.4-5.0); TOTAL PROTEIN 6.3 gm/dL (6.4-8.2)
--- NOTE | 2020-05-14 07:04 | NUR ---
Lying in bed with eyes open. Alert and oriented x4. Says that he was able to get sleep last night. Rates pain in abd 5/10, describes as a dull ache. Colostomy with watery brown stool in bag, removed at this time. Colostomy stoma pink and moist. Mid line abd incision dressing with serosanguinous drainage noted and coming through dressing. Dressing removed at this time. Carl intact, edges well approximated. Lower portion of incision with some redness noted. Applied 4x4's to site and covered with tape. Patient denies further needs or concerns at this time.
[2020-05-14 07:22] LABS: MAGNESIUM 2.2 mg/dL (1.6-2.3)
[2020-05-14 07:31] VITALS: BP 142/81; PULSE 94; TEMP 98.6
--- NOTE | 2020-05-14 07:32 | NUR ---
Patient ambulating in halls with PT at this time.
[2020-05-14 07:51] LABS: BAND 5 % (0-10); LYMPHOCYTE 27 % (20.0-51.0); METAMYELOCYTE 7 % (0-0); NEUTROPHILS 56 % (42.0-75.2); PLATELET ESTIMATE INCREASED (NORMAL)
[2020-05-14 07:52] LABS: HYPOCHROMIA 2+; POLYCHROMASIA 1+
[2020-05-14 07:53] LABS: SPHEROCYTE 1+
--- NOTE | 2020-05-14 10:34 | NUR ---
Rating pain 6/10 in abd and would like pain medication. Administer Dilaudid as prescribed. Patient lying in bed working with PT at this time.
[2020-05-14 11:10] VITALS: BP 133/79; PULSE 92; TEMP 99
--- NOTE | 2020-05-14 12:51 | NUR ---
Rates pain 8/10 in abd, describes the pain as sharp, requests pain medication. Will administer Dilaudid as prescribed. Dr. Liu in at this time to see patient.
--- NOTE | 2020-05-14 13:05 | NUR ---
Dressing to mid abd incision with moderate amount serosanguinous drainage, Dr. Liu seen when in room. Dressing removed, Dr. Liu assessed site. Incision cleaned with saline, pat dry, applied new 4x4s to site and reinforced with tape.
--- NOTE | 2020-05-14 15:24 | NUR ---
SW met with patient about after care for DC. Patient reports that he wants to know the plan for insurance. Educated requires prior auth for Home health services, will need to research companies that can take ,
[2020-05-14 15:51] VITALS: BP 136/83; PULSE 87; TEMP 98.4
--- NOTE | 2020-05-14 16:11 | NUR ---
Rating pain 6/10 in abd. Administer Dilaudid per patient request. WILLIAM Garcia, in to help patient take bed bath. Denies additional needs.
--- NOTE | 2020-05-14 17:43 | NUR ---
Sitting up in bed watching TV and talking with significant other. Was brought a full liquid tray for dinner. Says that he is tolerating most of it but is not fond of cream of chicken soup. Asked if there was anything else I could get him at this time and patient declines. Patient denies additional needs at this time.
[2020-05-14 20:24] VITALS: BP 138/88; PULSE 87; TEMP 98.7
--- NOTE | 2020-05-14 21:30 | NUR ---
Pt dressing was changed at this time. Pt did have some blood on the dressing. Pt jourdan looke well approimated. Pt tolerated this well. Pt now has a new dressing on the wound. There are three 4x4's and paper tape on the dresing. Pt colostomy has had a good output so far in the shift. Pt was able to put on gloves and we went through the steps of him emptying and closing his colostomy. Pt has done well tonight. Pt has been drinking juice and has not really had many full liquids yet. Pt has his call light wtihin reach.
[2020-05-15] VITALS (7 sets, daily range): BP systolic 115–146; BP diastolic 58–87; PULSE 66–103; TEMP 98–99
--- NOTE | 2020-05-15 00:40 | NUR ---
Pt was educated on emptying and cleaning his colosty bag. Pt did well with this. Pt was able to do everything by himself. I encouraged him to to empty his colostomy and ask as many questions as needed when he feels he needs to. Pt has his call light within reach.
--- NOTE | 2020-05-15 05:00 | NUR ---
Pt has had quite a bit of pain this morning.Pt was given Dilaudid IV and he as also given a Percocet this morning to help with the pain. Pt has his call light within reach and his bed is in lowest position .
[2020-05-15 07:02] LABS: HEMOGLOBIN 10.7 g/dl (13.5-18.0); MEAN CELL VOLUME 93 fl (80.0-100.0); MEAN CORPUSCULAR HEMOGLOBIN 30 pg (27.0-31.0); MEAN CORPUSCULAR HGB CONC 32 g/dl (33.0-37.0); MEAN PLATELET VOLUME 9.8 fl (7.4-10.4); PLATELET COUNT 439 K/mm3 (130-400); RED BLOOD COUNT 3.55 M/mm3 (4.20-5.60); REDCELL DISTRIBUTION WIDTH-CV 13.6 % (11.5-14.5)
[2020-05-15 07:14] LABS: HEMATOCRIT 33.1 % (42.0-52.0)
[2020-05-15 07:21] LABS: BILIRUBIN,TOTAL 0.5 mg/dL (0.0-1.0); CALCIUM 8.1 mg/dL (8.4-10.2); CREATININE, serum 0.69 (0.66-1.25); MAGNESIUM 2.1 mg/dL (1.6-2.3); PHOSPHOROUS 4.3 mg/dL (2.5-4.5); POTASSIUM 4.5 mmol/L (3.4-5.0); TOTAL PROTEIN 6.2 gm/dL (6.4-8.2)
[2020-05-15 09:29] LABS: BAND 3 % (0-10); EOSINOPHIL 1 % (0-4); LYMPHOCYTE 25 % (20.0-51.0); NEUTROPHILS 67 % (42.0-75.2); PLATELET ESTIMATE INCREASED (NORMAL)
--- NOTE | 2020-05-15 18:00 | NUR ---
Patient has been doing well today. He walked 2 laps in the hallway this afternoon. Encouraged him to walk more. He is having good urine output. No complaints of nausea. Pain has been controlled with percocet and dilauded. Encouraged him to try eating more today since he is passing flatus and has more colostomy output. He got cleaned up this afternoon. 12 hour urine started at 1845. Patient is hoping to advance his diet tomorrow. No other changes at this time. Call light within reach.
[2020-05-16 04:41] VITALS: BP 115/70; PULSE 96; TEMP 99.5
--- NOTE | 2020-05-16 06:29 | NUR ---
PT IN BED. NO N/V. COLOSTOMY PATENT. DILAUDID AND PERCOCET FOR PAIN.
[2020-05-16 06:49] LABS: HEMATOCRIT 33.9 % (42.0-52.0); HEMOGLOBIN 10.8 g/dl (13.5-18.0); MEAN CELL VOLUME 94 fl (80.0-100.0); MEAN CORPUSCULAR HEMOGLOBIN 30 pg (27.0-31.0); MEAN CORPUSCULAR HGB CONC 32 g/dl (33.0-37.0); MEAN PLATELET VOLUME 10.1 fl (7.4-10.4); PLATELET COUNT 471 K/mm3 (130-400); RED BLOOD COUNT 3.59 M/mm3 (4.20-5.60); REDCELL DISTRIBUTION WIDTH-CV 13.6 % (11.5-14.5)
[2020-05-16 06:57] LABS: ALBUMIN 3.1 gm/dL (3.5-5.0); BILIRUBIN,TOTAL 0.5 mg/dL (0.0-1.0); CREATININE, serum 0.78 (0.66-1.25); POTASSIUM 4.5 mmol/L (3.4-5.0); TOTAL PROTEIN 6.3 gm/dL (6.4-8.2)
[2020-05-16 07:42] LABS: 12 HR URINE TOTAL VOLUME 1.13 L
[2020-05-16 07:48] LABS: BAND 13 % (0-10); BASOPHIL 1 % (0-2); EOSINOPHIL 4 % (0-4); LYMPHOCYTE 18 % (20.0-51.0); METAMYELOCYTE 1 % (0-0); MYELOCYTE 1 % (0-0); NEUTROPHILS 59 % (42.0-75.2); PLATELET ESTIMATE INCREASED (NORMAL)
[2020-05-16 07:49] LABS: HYPOCHROMIA 1+
[2020-05-16 08:00] VITALS: BP 126/78; PULSE 86; TEMP 98.2
[2020-05-16 12:00] VITALS: BP 112/70; PULSE 101; TEMP 98.5
[2020-05-16 15:53] VITALS: BP 137/80; PULSE 93; TEMP 98.5
--- NOTE | 2020-05-16 18:15 | NUR ---
Patient sitting up in bed, tolerating general diet. Taking it slow. His significant other has gone home for the day, but she assisted him with hygiene today. fresh linens provided. Patient ambulated in the halls 4 times today with her & did well. Patient pain has been managed with Percocet & dilaudid. Patient aware of plan of care of weaning off of IV medication and is agreeable. Adequate urine output. Colostomy care & teaching given today. He has been more intersted, but still needs further education. skin protecting stoma powder & cavion wipes used. wafer cut to fit. Patient has had loose stool output & flatus. bowels active. Midline incisison with jourdan intact, but drainge is still noted, midline dressing changed x2. Picc line with tpn per orders & antibioics. Overall patient in better spirits. Will report off to night nurse.
[2020-05-16 21:10] VITALS: BP 116/72; PULSE 94; TEMP 99
[2020-05-17 00:22] VITALS: BP 120/75; PULSE 93; TEMP 98.7
--- NOTE | 2020-05-17 04:52 | NUR ---
PT IN BED. ALTERNATING PERCOCET AND DILAUDID FOR ABDOMINAL PAIN. OSTOMY APPLIANCE INTACT. NO N/V.
[2020-05-17 05:20] VITALS: BP 113/70; PULSE 91; TEMP 98.5
[2020-05-17 06:57] LABS: HEMOGLOBIN 11.2 g/dl (13.5-18.0); MEAN CELL VOLUME 94 fl (80.0-100.0); MEAN CORPUSCULAR HEMOGLOBIN 31 pg (27.0-31.0); MEAN CORPUSCULAR HGB CONC 33 g/dl (33.0-37.0); MEAN PLATELET VOLUME 9.7 fl (7.4-10.4); PLATELET COUNT 465 K/mm3 (130-400); RED BLOOD COUNT 3.67 M/mm3 (4.20-5.60); REDCELL DISTRIBUTION WIDTH-CV 13.5 % (11.5-14.5)
[2020-05-17 06:58] LABS: HEMATOCRIT 34.5 % (42.0-52.0)
[2020-05-17 07:01] LABS: ALBUMIN 3.4 gm/dL (3.5-5.0); BILIRUBIN,TOTAL 0.5 mg/dL (0.0-1.0); CALCIUM 8.3 mg/dL (8.4-10.2); CREATININE, serum 0.75 (0.66-1.25); MAGNESIUM 2.1 mg/dL (1.6-2.3); POTASSIUM 4.7 mmol/L (3.4-5.0); TOTAL PROTEIN 6.7 gm/dL (6.4-8.2)
[2020-05-17 07:17] VITALS: BP 109/74; PULSE 106; TEMP 98.7
[2020-05-17 08:09] LABS: BAND 3 % (0-10); EOSINOPHIL 2 % (0-4); HYPOCHROMIA 2+; LYMPHOCYTE 27 % (20.0-51.0); METAMYELOCYTE 2 % (0-0); NEUTROPHILS 63 % (42.0-75.2); PLATELET ESTIMATE INCREASED (NORMAL); STOMATOCYTE 1+
[2020-05-17 08:18] LABS: PATHOLOGY DIFF REVIEW OK
[2020-05-17 11:41] VITALS: BP 115/77; PULSE 104; TEMP 98.4
--- NOTE | 2020-05-17 13:45 | NUR ---
PICC intact right upper arm with sterile dressing change done with insertion site cleansed with chloraprep x 1, chlorhexidine impregnated disk applied, skin prep, stat lock, and tegaderm applied. no signs or symptoms of IV complications noted. no concerns voiced. re-wrapped with an radhames to protect catheter.
--- NOTE | 2020-05-17 14:08 | NUR ---
CARMINA met with the patient to follow up and review d/c plan. The patient states that he is doing okay. Dr. Liu is recommending home health, if the patient's insurance covers it. The patient has . CARMINA discussed this with the patient. He has a new ostomy. The patient states that he would be interested in home health. CARMINA provided the patient with Medicare[employer]'s list of home health agencies that serve [place]. The patient chose [facility]. CARMINA contacted and faxed a referral to Alta at [facility]. CARMINA awaiting their screen.
[2020-05-17 16:30] VITALS: BP 119/81; PULSE 106; TEMP 98.7
--- NOTE | 2020-05-17 18:30 | NUR ---
Patient is doing well. He has been out walking in the hallways. Denies nausea. He was having more pain and pressure in his abdomen. Discussed that it could be due to the change in pain medications. He has been voiding and making good amount of urine. TPN was discontinued and he has been eating and drinking. Dressing to midline was changed mid-morning. Gauze dressing that was removed was saturated with pink drainage. [place] are intact, no reddness noted. ABD pad placed to abdomen. Patient is upset that he can not switch visitors today. He stated he was told different things about the policy. I explained that there has not been any changes to the policy. No other changes at this time. Call light within reach.
[2020-05-17 19:44] VITALS: BP 129/81; PULSE 103; TEMP 99
--- NOTE | 2020-05-17 19:50 | NUR ---
Received report from GI Felipe. Pt is currently sitting up in bed. Pt has his call light within reach.
--- NOTE | 2020-05-17 22:39 | NUR ---
Pt is currently lying in bed. Pt was having some pain and after taking the oral pain medications he stated that he was still at a 8 on pain. We did agreee to wait a little to see if the pain would decrease. When I went back in the pt stateted that the pain hadn't got any worse but it still was at a 8. Pt was given IV pain medication at this time. Pt has his call light within reach. Pt has a soft formed bowel movement in his colostomy bag. Pt has his call light within reach.
--- NOTE | 2020-05-17 23:00 | NUR ---
Pt dressing was changed at this time. Pt stated that he tried lying on his back and his dressing came off. There was 3 4x4's used and paper tape. Pt tolerated well. Pt has his call light within reach.
[2020-05-18] VITALS (7 sets, daily range): BP systolic 118–153; BP diastolic 72–94; PULSE 80–113; TEMP 97.4–98.4
[2020-05-18 05:56] LABS: HEMOGLOBIN 10.4 g/dl (13.5-18.0); MEAN CELL VOLUME 94 fl (80.0-100.0); MEAN CORPUSCULAR HEMOGLOBIN 30 pg (27.0-31.0); MEAN CORPUSCULAR HGB CONC 32 g/dl (33.0-37.0); MEAN PLATELET VOLUME 9.3 fl (7.4-10.4); PLATELET COUNT 528 K/mm3 (130-400); RED BLOOD COUNT 3.47 M/mm3 (4.20-5.60); REDCELL DISTRIBUTION WIDTH-CV 13.7 % (11.5-14.5)
[2020-05-18 05:57] LABS: HEMATOCRIT 32.6 % (42.0-52.0)
[2020-05-18 06:06] LABS: ALBUMIN 3.4 gm/dL (3.5-5.0); BILIRUBIN,TOTAL 0.4 mg/dL (0.0-1.0); CALCIUM 8.4 mg/dL (8.4-10.2); CREATININE, serum 0.76 (0.66-1.25); POTASSIUM 4.3 mmol/L (3.4-5.0); TOTAL PROTEIN 6.9 gm/dL (6.4-8.2)
[2020-05-18 06:20] LABS: BAND 1 % (0-10); BASOPHIL 1 % (0-2); EOSINOPHIL 1 % (0-4); LYMPHOCYTE 14 % (20.0-51.0); NEUTROPHILS 79 % (42.0-75.2); PLATELET ESTIMATE INCREASED (NORMAL)
[2020-05-18 06:21] LABS: HYPOCHROMIA 1+
--- NOTE | 2020-05-18 07:34 | NUR ---
Pt did well throughout the night with PO pain medications. Pt called this morning right before shift change. It was to early for him to have percocet and he had just had Motrin. He was rating his pain at a 8 on the numeric pain scale. Pt was given IV medications at this time. Pt did get up this morning and used the restroom and he emptied his colostomy bag on his on. Pt has been doing will with the care of it throughout the night. Pt did get assistance at the beginning of the shift with emptying it. Pt has his call light within reach. He has no other concerns at this time.
--- NOTE | 2020-05-18 08:36 | NUR ---
Alta, at [facility], reports that they are able to accept the patient for services. SW to inform the patient.
[2020-05-18] MEDS ORDERED: PERCOCET 325 MG1 TA3 PO ×2 (10:54)
--- NOTE | 2020-05-18 11:00 | NUR ---
Patient alert and oriented, answers questions appropriately. See assessment. Abdomen soft, non tender, non distended. Bowel sounds active x4 quads. Midline incision with edges well approximated, no redness or drainage noted. Ostomy pink and protruding. Stool in air noted in ostomy appliance. C/o pain 12/02. Post op exercises reviewed with patient. No c/o at this time.
--- NOTE | 2020-05-18 11:54 | NUR ---
CARMINA met with the patient to update on [facility]'s acceptance. The patient states that Dr. Liu informed him that he should be able to d/c tomorrow. CARMINA notified Alta at [facility]. Alta states that she will contact the patient today to schedule a visit. CARMINA to continue to follow.
--- NOTE | 2020-05-18 20:30 | NUR ---
Initial shift assessment done- states having abd pain 7/10 and needs his pain meds-- will give percocet as ordered at this time. Colostomy bag with soft brown stool - pt getting up to bathroom to empty. States is going home tomorrow
[2020-05-19 04:15] VITALS: BP 123/68; PULSE 121; TEMP 102.6
[2020-05-19 04:20] VITALS: TEMP 102.5
--- NOTE | 2020-05-19 04:45 | NUR ---
Pt spiked a temp to 102.6, tachy at 121/min, flushed. Is using I.S, Pt requesting percocet for for abd pain 02/01. Dr. Shin called to inform of temp- order for blood cultures x2, one from PICC and one set peripherally- will give the Percocet as soon as blood cultures are drawn- lab called. Abd dressing removed- had some serous/yellow/londono drainage from incision- incision line with some redness noted- did change the colostomy appliance bag-not sure if it was leaking or the drainage was from the incision-- new dressing also over midline incision.
[2020-05-19 05:24] LABS: BASO # 0.1 (0.0-0.2); BASO % 0.9 % (0.0-2.0); EOS # 0.6 (0.0-0.7); EOS % 4.6 % (0-4.0); GRAN # 8.3 (1.4-6.5); GRAN % 69.2 % (42.2-75.2); HEMOGLOBIN 10.5 g/dl (13.5-18.0); LYMPH # 1.6 (1.2-3.4); LYMPH % 12.9 % (20.0-51.0); MEAN CELL VOLUME 92 fl (80.0-100.0); MEAN CORPUSCULAR HEMOGLOBIN 29 pg (27.0-31.0); MEAN CORPUSCULAR HGB CONC 32 g/dl (33.0-37.0); MEAN PLATELET VOLUME 9.2 fl (7.4-10.4); MONO % 8.2 % (1.7-9.3); PLATELET COUNT 560 K/mm3 (130-400); RED BLOOD COUNT 3.57 M/mm3 (4.20-5.60); REDCELL DISTRIBUTION WIDTH-CV 13.6 % (11.5-14.5)
[2020-05-19 05:29] LABS: ALBUMIN 3.5 gm/dL (3.5-5.0); CALCIUM 8.5 mg/dL (8.4-10.2); CREATININE, serum 0.82 (0.66-1.25); PHOSPHOROUS 3.7 mg/dL (2.5-4.5); POTASSIUM 4.7 mmol/L (3.4-5.0)
[2020-05-19 05:30] LABS: HEMATOCRIT 32.7 % (42.0-52.0)
[2020-05-19 07:36] VITALS: BP 113/82; PULSE 86; TEMP 99
--- NOTE | 2020-05-19 08:00 | NUR ---
PT A&O. VSS. HEAD TO TOE ASSESSMENT DONE. ABD MIDLINE COVERED WITH GAUZE AND HYPAFIX, CD&I. PT HAS ABD OSTOMY PRODUCING GAS, NO STOOL NOTED, BAG IN PLACE. PT HAS PICC IN R UPPER ARM. REPLACED CAPS AND FLUSHED. PT REPORTS PAIN GAVE PRN NARCOTIC. PT REQUESTING WARM WIPES AND CAP TO CLEAN SELF. LAYING IN BED. NO OTHER COMPLAINTS. CALL LIGHT IN REACH.
[2020-05-19] MEDS ORDERED: AMOXICILLIN 8751 TAB PO (09:57)
[2020-05-19] MEDS ORDERED: MOTRIN 600600 MG/TAB PO (09:58)
[2020-05-19] MEDS ORDERED: PERCOCET 325 MG1 TA3 PO (09:59)
[2020-05-19] MEDS ORDERED: NEURONTIN100 MG/CAP PO (09:59)
[2020-05-19] MEDS ORDERED: ULTRAM 50MG TAB50 MG PO (09:59)
[2020-05-19] MEDS ORDERED: Work release (10:05)
[2020-05-19 12:00] VITALS: BP 125/78; PULSE 76; TEMP 98.5
--- NOTE | 2020-05-19 13:48 | NUR ---
The patient's WBC count went up and he spiked a fever this morning. The patient is not ready to d/c. CARMINA informed the patient's RN on how the patient will need home health orders, when ready to d/c. CARMINA attempted to contact and updated Alta at [facility]. CARMINA left her a voicemail.
[2020-05-19 16:00] VITALS: BP 109/68; PULSE 100; TEMP 98.4
[2020-05-19 19:38] VITALS: BP 120/72; PULSE 91; TEMP 98.1
--- NOTE | 2020-05-19 21:20 | NUR ---
Pt having complaints of pain in his right lower quadrant. He states it is about where his incision is next to his colostomy. There is some drainage there and he states that has been consistent. Ostomy does have output which patients states has been consistent as well. Pt is doing well emptying the ostomy. He is steady on his feet and has been ambulating often. He stated he has not been using the incentive spirometer as often because he is walking a lot. Encouraged him to continue to use it. No needs at this time, will continue to monitor, call light in reach.
--- NOTE | 2020-05-19 23:58 | NUR ---
Called with c/o pain to middle abdomen near umbilicus-rating pain 9/10 on pain scale-described as intermittent stabbing. Scheduled motrin given as well as Percocet two tabs per dr order. WIll monitor.
[2020-05-20] VITALS: BP 104/56; PULSE 101; TEMP 98.8
[2020-05-20 03:13] VITALS: BP 123/70; PULSE 107; TEMP 99
[2020-05-20 06:32] LABS: HEMOGLOBIN 10.3 g/dl (13.5-18.0); MEAN CELL VOLUME 93 fl (80.0-100.0); MEAN CORPUSCULAR HEMOGLOBIN 30 pg (27.0-31.0); MEAN CORPUSCULAR HGB CONC 32 g/dl (33.0-37.0); MEAN PLATELET VOLUME 9.4 fl (7.4-10.4); PLATELET COUNT 550 K/mm3 (130-400); RED BLOOD COUNT 3.49 M/mm3 (4.20-5.60); REDCELL DISTRIBUTION WIDTH-CV 13.5 % (11.5-14.5)
[2020-05-20 06:33] LABS: HEMATOCRIT 32.4 % (42.0-52.0)
[2020-05-20 06:50] LABS: ALBUMIN 3.5 gm/dL (3.5-5.0); CALCIUM 8.3 mg/dL (8.4-10.2); CREATININE, serum 0.88 (0.66-1.25); PHOSPHOROUS 4.7 mg/dL (2.5-4.5); POTASSIUM 4.8 mmol/L (3.4-5.0)
--- NOTE | 2020-05-20 07:17 | NUR ---
Pt slept off and on through the night. Pain medication given when requested. Pt is independent in the room and continues to have output from ostomy. No needs, report given.
[2020-05-20 08:06] LABS: BAND 8 % (0-10); EOSINOPHIL 2 % (0-4); LYMPHOCYTE 28 % (20.0-51.0); NEUTROPHILS 52 % (42.0-75.2); PLATELET ESTIMATE INCREASED (NORMAL)
--- NOTE | 2020-05-20 08:09 | NUR ---
Karlinet sitting up in bed, alert and oriented x 3. Assessment complete. Patient states mild pain to midline incision. Dressing to midline incision with drainage, dressing changed at this time. Edges well approximated with redness noted. Octomy to left quadrant with output noted. PICC line to CHRISTINE without complications. Patient was up ambulating in halls independently this AM during shift change. Denies further needs at this time. Will report off to hourly shift manager.
[2020-05-20 08:15] VITALS: BP 137/81; PULSE 98; TEMP 98.2
--- NOTE | 2020-05-20 10:39 | NUR ---
CARMINA informed by Surgical nurse that patient would be discharging. CARMINA copied DC orders and faxed orders to [facility]. CARMINA called [facility] staff Alta to inform of patient's discharge. Alta provided that she would be in contact with patient today and provided and forestry consultant number to provide to patient if he had any questions. CARMINA met with patient to discuss discharge and patient provided that he had already informed [place] and stated that he has set up his own transportation. CARMINA informed that [facility] would supply colostomy bags, SW ensured with nursing staff that patient would go home with enough.
--- NOTE | 2020-05-20 12:30 | NUR ---
Discharge education provided to patient on all new medications and medication safety. Patien educated on when to call provider and signs and symptoms of infection. Patient educated on ostomy care and changing out appliance. Educted on post removal care. Ostomy appliance changed out. Removed jourdan from midline incision steristrips in place. Denies further needs at this time. Patient out with family and surgical staff.
== END 2020-05-20 13:00 | disposition home health service (06) | DRG 330 ==
LOC: COL.ER 21:30 → MEDICAL 05-05 01:05 → SURG 05-05 01:05 → ICU 05-08 00:58 → SURG 05-08 03:39
PROVIDERS: Emergency Medicine; Student in an Organized Health Care Education/Training Program; Surgery; ADMIT Surgery
PROC: 0DTN0ZZ Resection of Sigmoid Colon, Open Approach (ICD-10-PCS; principal; 2020-05-07 08:30)
PROC: 0DSN4ZZ Reposition Sigmoid Colon, Percutaneous Endoscopic Approach (ICD-10-PCS; 2020-05-07 08:30)
PROC: 02HV33Z Insertion of Infusion Device into Superior Vena Cava, Percutaneous Approach (ICD-10-PCS; 2020-05-10)
DX: K57.20 Diverticulitis of large intestine with perforation and abscess without bleeding (principal); K56.7 Ileus, unspecified; Z20.828 Contact with and (suspected) exposure to other viral communicable diseases; F41.9 Anxiety disorder, unspecified; F43.10 Post-traumatic stress disorder, unspecified; F17.210 Nicotine dependence, cigarettes, uncomplicated; D72.829 Elevated white blood cell count, unspecified; D64.9 Anemia, unspecified; R73.9 Hyperglycemia, unspecified; Z90.49 Acquired absence of other specified parts of digestive tract
CPT/HCPCS: A4217; A4314; A9284; C1751; C9113; J0330; J0610; J0690; J1100; J1170; J1200; J1450; J1650; J1885; J1940; J2250; J2270; J2405; J2543; J2550; J2704; J3010; J3370; J3475; J3480; J7030; J7040; J7050; J7120; J7121; J7131; Q9967

== ENCOUNTER 2020-05-20 18:29 | Inpatient (IN) | payer OTHER ==
[~2020-05-20] VITALS: Ht 180.3 cm; Wt 93.7 kg
[~2020-05-20 18:29] MED LIST changes: +AMOXICILLIN 8751 TAB PO; +MOTRIN 600600 MG/TAB PO; +NEURONTIN100 MG/CAP PO; +PERCOCET 325 MG1 TA3 PO; +ULTRAM 50MG TAB50 MG PO; +Work release
[2020-05-20 19:14] LABS: HEMOGLOBIN 11.3 g/dl (13.5-18.0); MEAN CELL VOLUME 91 fl (80.0-100.0); MEAN CORPUSCULAR HEMOGLOBIN 29 pg (27.0-31.0); MEAN CORPUSCULAR HGB CONC 32 g/dl (33.0-37.0); MEAN PLATELET VOLUME 8.9 fl (7.4-10.4); PLATELET COUNT 596 K/mm3 (130-400); RED BLOOD COUNT 3.84 M/mm3 (4.20-5.60); REDCELL DISTRIBUTION WIDTH-CV 13.3 % (11.5-14.5)
[2020-05-20 19:27] LABS: BILIRUBIN,TOTAL 0.5 mg/dL (0.0-1.0); C-REACTIVE PROTEIN 6.8 mg/dL (0.0-0.9); CALCIUM 8.7 mg/dL (8.4-10.2); CREATININE, serum 0.81 (0.66-1.25); POTASSIUM 4.6 mmol/L (3.4-5.0); TOTAL PROTEIN 7.6 gm/dL (6.4-8.2)
[2020-05-20 19:28] LABS: HEMATOCRIT 34.9 % (42.0-52.0)
[2020-05-20 19:40] LABS: BAND 7 % (0-10); EOSINOPHIL 1 % (0-4); LYMPHOCYTE 22 % (20.0-51.0); MYELOCYTE 3 % (0-0); NEUTROPHILS 60 % (42.0-75.2); PLATELET ESTIMATE INCREASED (NORMAL)
[2020-05-20 19:41] LABS: ANISOCYTOSIS 1+; STOMATOCYTE 1+
[2020-05-20 21:39] LABS: TROPONIN-I < 0.012 ng/mL (0.000-0.035)
[2020-05-20 22:46] LABS: INR 1.3 (0.8-3.0)
[2020-05-20 22:48] LABS: PARTIAL THROMBOPLASTIN TIME 35.2 SECONDS (26.0-37.0)
[2020-05-20 23:37] VITALS: BP 114/72; PULSE 112; TEMP 101.1
--- NOTE | 2020-05-21 00:35 | NUR ---
Patient arrived to medical room 305 from ER at approximately 2300. Patient assessed. Alert and oriented x 4, and able to make needs known. Reports level 9 pain to abdomen. Given PRN Percocet as requested for pain. Temp 101.1. Given PRN APAP. Peripheral INT to left hand. Site without redness, warmth, swelling, and pain. Denies having SOB and dyspnea. LS CTA. Respirations even and unlabored. On oxygen at 2 L/min via NC. Reports occasional moist cough with thick white sputum. Patient did test positive from Covid-19, and is on contact/droplet isoloation precautions. HRR. Capillary refill less than 3 seconds. Non-tenting skin turgor. BSAx4. Colostomy to LLQ-recent. Surgical site has steristrips that are CDI. No edema. Notified that we need a urine sample, stated that he had just urinated when he was in ER, but will let staff know when he goes. Voices no questions, needs, or concerns at this time. Resting in bed with call light within reach.
[2020-05-21 03:15] LABS: COLLECTION METHOD CLEAN CATCH
[2020-05-21 03:22] LABS: PH 7 (5-8); SQUAMOUS EPITHELIAL None Seen /hpf; URINE APPEARANCE Clear; URINE BACTERIA None Seen /hpf; URINE BILIRUBIN Negative (NEGATIVE); URINE BLOOD Negative (NEGATIVE); URINE COLOR Yellow; URINE GLUCOSE Negative (NEGATIVE); URINE KETONE Negative (NEGATIVE); URINE LEUKOCYTE ESTERASE Negative (NEGATIVE); URINE NITRATE Negative (NEGATIVE); URINE PROTEIN(semi-quant) Negative (NEGATIVE); URINE UROBILINOGEN Negative (NEGATIVE)
[2020-05-21 04:18] VITALS: BP 136/94; PULSE 102; TEMP 98.9
[2020-05-21 07:01] LABS: HEMATOCRIT 37.5 % (42.0-52.0); HEMOGLOBIN 11.8 g/dl (13.5-18.0); MEAN CELL VOLUME 94 fl (80.0-100.0); MEAN CORPUSCULAR HEMOGLOBIN 30 pg (27.0-31.0); MEAN CORPUSCULAR HGB CONC 32 g/dl (33.0-37.0); MEAN PLATELET VOLUME 9.5 fl (7.4-10.4); PLATELET COUNT 658 K/mm3 (130-400); RED BLOOD COUNT 3.99 M/mm3 (4.20-5.60); REDCELL DISTRIBUTION WIDTH-CV 13.4 % (11.5-14.5)
--- NOTE | 2020-05-21 07:18 | NUR ---
Patient has received PRN Percocet twice this shift, and PRN Ultram once. Recieved PRN APAP once for fever of 101.1, which was effective. Resting in bed with call light within reach. Continues to wear oxygen at 2 L/min via NC. Voice no questions, needs, or concerns at this time. Resting in bed with call light within reach.
[2020-05-21 08:00] VITALS: BP 117/72; PULSE 98; TEMP 99.5
[2020-05-21 09:16] LABS: BAND 23 % (0-10); EOSINOPHIL 1 % (0-4); LYMPHOCYTE 13 % (20.0-51.0); METAMYELOCYTE 2 % (0-0); MYELOCYTE 1 % (0-0); NEUTROPHILS 58 % (42.0-75.2); PLATELET ESTIMATE INCREASED (NORMAL)
[2020-05-21 09:18] LABS: HYPOCHROMIA 1+
[2020-05-21 10:57] VITALS: BP 108/80; PULSE 101; TEMP 98.9
--- NOTE | 2020-05-21 11:34 | NUR ---
THe patient is positive for COVID. CARMINA contacted the patient's room phone to complete intake. The patient was discharged from the hospital yesterday, 05/20, with home ángel services for retirement for his new ostomy from [facility]. The patient then returned home and started feeling poorly and had a fever. He then returned to the hospital and tested positive for COVID. The patient lives in [place] with his [id number], Rama Augustin (ph#[phone]), and his five children. They are ages nine-seventeen. He has a fiance, Trinidad (ph#[phone]), that lives in [place]. He reports independence with ADLs and has a cane available, if needed. The patient's primary care provider is Allne Reyes at [facility] and he also receives his medications from [facility]. The patient does not have a DPOA-HC in EMR, but he states that he does have one completed and at home. He states that it designates his [id number], Rama. The patient plans to return home with his family upon discharge and resume services from [facility] for his ostomy. CARMINA contacted and faxed updates to Alta at [facility]. Alta reports that they are able to provide services for the patient with him being COVID positive. The patient is currently on 2 liters of oxygen. SW to continue to follow.
--- NOTE | 2020-05-21 11:36 | NUR ---
Assessment complete. Patient sitting up in bed, awake and alert. Pt requested supplies to empty and clean the colostomy, stated he could do this independently. Pain reported in his abdomne, PRN pain medication proivded for this. IV site is CD&I. Incision site CD&I. No other needs were expressed at this time. Call light is in reach.
[2020-05-21 16:27] VITALS: BP 132/90; PULSE 98; TEMP 98.3
--- NOTE | 2020-05-21 18:14 | NUR ---
Patient has required pain medication all day. Dose had to be adjusted twice as it was not the same dose he was recieiving prior to departure and readmission. Dose is now 1-2 tabs q4 and patient will want both tabs, every time. He is very irritable when it comes to his pain and medications but he is pleasant otherwise. New bedding was provided. Pt pulled IV out unintentionally. New one was placed in left AC, no issues. Continuing to monitor. Call light is in reach.
[2020-05-21 20:00] VITALS: BP 137/52; PULSE 97; TEMP 98.9
--- NOTE | 2020-05-21 20:30 | NUR ---
Patient assessed at this time. Alert and oriented x 4, and able to make needs known. Reports level 8 pain to abdomen. Given PRN Percocet per orders. Peripheral INT to left AC. Reports SOB with exertion. On oxygen at 2 L/min via NC. LS CTA. Respirations even and unlabored. Reports occasional cough with thick white sputum, small amount. HRR. Capillary refill less than 3 seconds. Non-tenting skin turgor. BSAx4. Colostomy to LLQ, with soft formed stool, small amount. Surgical site to abdomen with steristrips CDI, redness to area. Urine clear and yellow. No edema. Voices no questions, needs, or concerns at this time. Resting in bed with call light within reach.
--- NOTE | 2020-05-21 22:30 | NUR ---
Dr. Patel had called and given update on patient satus. New orders received to D/C augmentin and to start on Zosyn. Given first dose at this time per orders. Updated patient on antibiotics. Voices no questions, needs, or concerns at this time. Call light within reach.
--- NOTE | 2020-05-21 23:00 | NUR ---
Patient given PRN Ultram for level 7 pain to abdomen as requested. Voices no further questions, needs, or concerns at this time.
[2020-05-21 23:54] VITALS: BP 131/55; PULSE 93; TEMP 98.9
[2020-05-22 04:00] VITALS: BP 118/54; PULSE 78; TEMP 98
[2020-05-22 05:55] LABS: HEMOGLOBIN 10.3 g/dl (13.5-18.0); MEAN CELL VOLUME 92 fl (80.0-100.0); MEAN CORPUSCULAR HEMOGLOBIN 29 pg (27.0-31.0); MEAN CORPUSCULAR HGB CONC 32 g/dl (33.0-37.0); MEAN PLATELET VOLUME 9.2 fl (7.4-10.4); PLATELET COUNT 567 K/mm3 (130-400); REDCELL DISTRIBUTION WIDTH-CV 13.4 % (11.5-14.5)
[2020-05-22 06:04] LABS: CALCIUM 8.7 mg/dL (8.4-10.2); CREATININE, serum 0.71 (0.66-1.25); POTASSIUM 4.4 mmol/L (3.4-5.0)
[2020-05-22 06:05] LABS: HEMATOCRIT 32.2 % (42.0-52.0)
--- NOTE | 2020-05-22 06:13 | NUR ---
Patient had no further complaints of pain or discomfort, except when woken up to do morning labs, patient reported level 6 pain to abdomen. Given PRN Percocet as requested for pain. Voices no further questions, needs, or concerns at this time. Resting in bed with call light within reach.
[2020-05-22 06:39] LABS: BAND 21 % (0-10); LYMPHOCYTE 13 % (20.0-51.0); NEUTROPHILS 54 % (42.0-75.2); PLATELET ESTIMATE INCREASED (NORMAL)
[2020-05-22 07:58] VITALS: BP 138/90; PULSE 75; TEMP 97.9
--- NOTE | 2020-05-22 08:21 | NUR ---
Patient alert and oriented. complain of abdomen pain at 6/10. redness and moist on abdominal incision. Patient have colostomy, stoma appears beefy red. Patient have good appetite for food. Independent in the room, on 2L O2 via NC at 96%. Patient have no further concern or question at this time.
--- NOTE | 2020-05-22 11:36 | NUR ---
Patient was taken off 2L of O2. saturation at 92 - 95% onn room air.
[2020-05-22 15:40] VITALS: BP 130/94; PULSE 82; TEMP 99.1
[2020-05-22 19:30] VITALS: BP 130/72; PULSE 74; TEMP 98.1
--- NOTE | 2020-05-22 20:30 | NUR ---
Patient assessed at this time. Alert and oriented x 4, and able to make needs known. Reported level 8 pain and discomfort and given PRN Percocet as requested. Peripheral INT to left AC. Site without redness, warmth, swelling, and pain. Denies SOB and dyspnea. Did request oxygen at .5 L/min via NC during the night. LS CTA. Respirations even and unlabored. HRR. Capillary refill less than 3 seconds. Non-tenting skin turgor. BSAx4. Colostomy to LLQ. Steristrips with drainage. No active drainage noted. Redness to surgical site, but no increase noted. No edema. Resting in bed with call light within reach.
[2020-05-23 00:30] VITALS: BP 122/70; PULSE 76; TEMP 98.8
--- NOTE | 2020-05-23 00:30 | NUR ---
Patient given PRN Percocet as requested for pain at this time.
[2020-05-23 04:20] VITALS: BP 125/72; PULSE 70; TEMP 98.1
--- NOTE | 2020-05-23 07:09 | NUR ---
Patient has been receiving PRN Percocet approximately every 4 hours for abdominal pain. Voices no questions, needs, or concerns at this time. Resting in bed with call light within reach.
[2020-05-23 08:19] VITALS: BP 136/84; PULSE 65; TEMP 98.5
[2020-05-23 08:55] LABS: MEAN CELL VOLUME 92 fl (80.0-100.0); MEAN CORPUSCULAR HEMOGLOBIN 30 pg (27.0-31.0); MEAN CORPUSCULAR HGB CONC 32 g/dl (33.0-37.0); MEAN PLATELET VOLUME 9.2 fl (7.4-10.4); RED BLOOD COUNT 3.69 M/mm3 (4.20-5.60); REDCELL DISTRIBUTION WIDTH-CV 13.5 % (11.5-14.5)
[2020-05-23 08:59] LABS: HEMATOCRIT 34.1 % (42.0-52.0); PLATELET COUNT 454 K/mm3 (130-400)
[2020-05-23 09:00] LABS: CALCIUM 8.9 mg/dL (8.4-10.2); CREATININE, serum 0.8 (0.66-1.25); POTASSIUM 4.6 mmol/L (3.4-5.0)
--- NOTE | 2020-05-23 09:52 | NUR ---
PATIENT ASSESSMENT COMPLETED. COMPLAINS OF SOME SOB WITH ACTIVITY ALONG WITH A SMALL PRODUCTIVE COUGH. PAIN MEDICATION PROVIDED FOR PAIN
[2020-05-23 11:25] LABS: BAND 1 % (0-10); HYPOCHROMIA 1+; LYMPHOCYTE 30 % (20.0-51.0); NEUTROPHILS 65 % (42.0-75.2); PLATELET ESTIMATE NORMAL (NORMAL)
--- NOTE | 2020-05-23 11:30 | NUR ---
This nurse called pt's mother in law to give update regarding discharge plan per request from this morning: per provider, pt will most likely discharge tomorrow to home with home health d/t no medical reason for staying in the hospital or going to rehab facility, also will have surgery stop back by to check pt's surgical wound prior to discharge. Pt's mother in law asks about pt's O2 needs. This nurse reviews that the pt is occasionally using a small amount of O2 and might need to return home with the O2 based on testing that would be done in the morning. Pt's mother in law expresses concern with the plan, stating, "You know I'm upset about this but I know you're telling me the truth."
[2020-05-23 11:59] VITALS: BP 142/86; PULSE 77; TEMP 99.5
--- NOTE | 2020-05-23 12:00 | NUR ---
PATIENT MOVED TO ROOM 316. AIR WAS BLOWING IN THE WINDOWS MAKING IT COLD.
--- NOTE | 2020-05-23 12:15 | NUR ---
PATIENT COMPLAINS OF ABDOMEN PAIN PRN ULTRAM GIVEN PER HIS REQUEST.
--- NOTE | 2020-05-23 13:33 | NUR ---
PATIENT COMPLAINS OF 8/10 ABDOMEN PAIN. PRN PAIN MEDICATION GIVEN AT THIS TIME WITH HIS LUNCH THAT JUST ARRIVED. NO OTHER NEEDS AT THIS TIME.
--- NOTE | 2020-05-23 14:08 | NUR ---
CARMINA informed by nurse that patient would be discharging soon. CARMINA faxed updated information to [facility]. Nurse provided that there is a current concern of patient not wanting to be discharged due to not wanting to infect small children at home. Patient will remain at facility today 05/23/2020, but will be dc'd tommorow 05/24/2020
[2020-05-23 15:49] VITALS: BP 152/95; PULSE 106; TEMP 98.1
--- NOTE | 2020-05-23 19:15 | NUR ---
REPORT RCVD FROM GI CATALAN TO THIS RN AND STUDENT NURSE CARLTON. PER REPORT THE PATIENT HAS BEEN CALLING RIGHT AT [facility] FOR HIS PAIN MEDICATIONS. THE EMAR SHOWS THE ADMINISTRATION TIMES OF EVERY 4 HOURS, AND THE PATIENT STATES THAT HE WANTS TO KEEP THE PAIN MANAGEMENT ON A SCHEDULE SO THAT HE CAN GET MORE SLEEP THAN HE HAS IN RECENT DAYS/NIGHTS. EDUCATED THE PATIENT ON PAIN MANAGEMENT AND WHAT PRN OR NEEDED STANDS FOR. THE PATIENT IS UNDERSTANDING, AND STATES THAT HE WANTS THE MEDICATION RIGHT AT WHEN HE IS ELIGIBLE TO RECEIVE IT. WILL CONTIUE TO EDUCATE THE PATIENT ON NEEDED MEDICATIONS.
[2020-05-23 20:00] VITALS: BP 142/78; PULSE 78; TEMP 98.6
--- NOTE | 2020-05-23 21:34 | NUR ---
Education provided on changing an ostomy wafer and pouch, instructed on need to change whenever there is leakage around the wafer. Pt verbalized understanding and did engage in training on best practice for cleaning around the stoma, using skin barrier wipes, providing warmth and holding the new wafer in place for one minute when first applied.
--- NOTE | 2020-05-23 22:26 | NUR ---
PATIENT IS HAS BEEN EXPERIENCING LEAKAGE UNDER HIS COLOSTOMY WAFER. THE AREA IS RED AND IRRITATED. NO OPEN SORES. AREA WAS CLEANED AND WAFER WAS CHANGED. WILL CONTINUE TO MONITOR.
--- NOTE | 2020-05-23 23:12 | NUR ---
BEDSIDE REPORT RECIEVED FROM GI CATALAN. PATIENT COMPLAINING OF PAIN IN HIS ABDOMEN 7/10. ULTRAM AND PERCOCET GIVEN WHICH REDUCED HIS PAIN TO 4/10. PATIENT'S ABDOMINAL SUTURE IS REDDENED WITH NO DRAINAGE. SKIN AROUND COLOSTOMY SITE IS REDDENED AND IRRATATED WELL. NO CURRENT SORES NOTED. WILL CONTINUE TO MONITOR. PATIENT IS CURRENTLY SITTING UP IN BED WATCHING A MOVIE ON HIS IPAD AND REPORTS NO FURTHER NEEDS AT THIS TIME. BED IN LOWEST POSITION. CALL LIGHT WITHIN REACH.
[2020-05-24] VITALS: BP 119/53; PULSE 82; TEMP 99.6
--- NOTE | 2020-05-24 03:44 | NUR ---
PATIENT CURRENTLY LAYING IN BED SLEEPING. HAS NOT C/O ANY PAIN OR DISCOMFORT SINCE HIS LAST DOES OF PERCOCET. CALL LIGHT WITHIN REACH. WILL CONTINUE TO MONITOR.
[2020-05-24 04:00] VITALS: BP 138/62; PULSE 80; TEMP 98.4
--- NOTE | 2020-05-24 07:00 | NUR ---
Report received from Shayna, pt resting in bed with eyes closed, will continue to monitor.
[2020-05-24 07:23] LABS: HEMOGLOBIN 10.5 g/dl (13.5-18.0); MEAN CELL VOLUME 92 fl (80.0-100.0); MEAN CORPUSCULAR HEMOGLOBIN 30 pg (27.0-31.0); MEAN CORPUSCULAR HGB CONC 32 g/dl (33.0-37.0); PLATELET COUNT 456 K/mm3 (130-400); RED BLOOD COUNT 3.54 M/mm3 (4.20-5.60); REDCELL DISTRIBUTION WIDTH-CV 13.5 % (11.5-14.5)
[2020-05-24 07:24] LABS: HEMATOCRIT 32.5 % (42.0-52.0)
[2020-05-24 07:31] LABS: CALCIUM 8.8 mg/dL (8.4-10.2); CREATININE, serum 0.89 (0.66-1.25); MAGNESIUM 1.8 mg/dL (1.6-2.3); POTASSIUM 4.1 mmol/L (3.4-5.0)
[2020-05-24 08:17] VITALS: BP 127/75; PULSE 77; TEMP 98.6
--- NOTE | 2020-05-24 08:34 | NUR ---
Assessment charted. PT rates pain to ABD at 5/10, utilizing PRN pain meds regularly. Ostomy has formed stool coming out, no leakage. Midline incision well approximated with steristrips in place. Taking PO well, denies needs, alex continue to monitor.
[2020-05-24 09:27] LABS: BAND 2 % (0-10); LYMPHOCYTE 29 % (20.0-51.0); METAMYELOCYTE 1 % (0-0); NEUTROPHILS 63 % (42.0-75.2); NUCLEATED RED BLOOD CELL 1 (0-6)
[2020-05-24 09:28] LABS: HYPOCHROMIA 1+; PLATELET ESTIMATE INCREASED (NORMAL)
[2020-05-24 12:00] VITALS: BP 134/79; PULSE 88; TEMP 98.7
[2020-05-24] MEDS ORDERED: PROAIR HFA0.09 MG/AC IH (12:55)
[2020-05-24] MEDS ORDERED: ROBITUSSIN100 MG/5 M PO (12:55)
[2020-05-24] MEDS ORDERED: AMOXICILLIN 8751 TAB PO (12:55)
[2020-05-24] MEDS ORDERED: TYLENOL 325MG325 MG PO (12:56)
[2020-05-24] MEDS ORDERED: DECADRON6 MG PO (12:58)
--- NOTE | 2020-05-24 15:52 | NUR ---
Methods Analyst contacted patient to follow up on discharge plan. Patient will discharge home in [place] today with family and [facility]. Patient's mother in law to provide transportation home. CARMINA faxed discharge orders for [place]/Wound Care to [facility] at [facility]. CARMINA contacted Alta to confirm they were received and Alta advised she has already been in contact with patient. No additional needs at this time.
--- NOTE | 2020-05-24 16:29 | NUR ---
Discharge teaching completed at this time. Pt INT dc'd, tip intact. Pt very agreeable with discharge plan and aware that mother in law has been calling regarding trying to keep pt in hospital but we cannot keep them unless medically necessary per admitting physician. Pt reviewed dishcarge packet, verbalized understanding, discussed f/u's, scripts, and meds. PT escorted out via w/c with myself and clean person. Escorted out with all belongings to family's car. Family to drive home, criteria met.
== END 2020-05-24 15:00 | disposition home health service (06) | DRG 871 ==
LOC: COL.ER 18:29 → MEDICAL 20:20
PROVIDERS: Hospitalist; Nurse Practitioner Family; Nurse Practitioner Primary Care; ADMIT Internal Medicine
DX: A41.89 Other specified sepsis (principal); U07.1 COVID-19; J96.01 Acute respiratory failure with hypoxia; L50.8 Other urticaria; I10 Essential (primary) hypertension; R74.01 Elevation of levels of liver transaminase levels; D64.9 Anemia, unspecified; D69.6 Thrombocytopenia, unspecified; Z87.891 Personal history of nicotine dependence; Z93.3 Colostomy status
CPT/HCPCS: 99223-AI; 99232-AI; 99239; J1650; J2270; J2405; J2543; J7030; J8540

== ENCOUNTER 2020-06-22 08:23 | Inpatient (IN) | payer OTHER ==
[~2020-06-22] VITALS: Ht 180.3 cm; Wt 93.4 kg
[~2020-06-22 08:23] MED LIST changes: +DECADRON6 MG PO; +PROAIR HFA0.09 MG/AC IH; +ROBITUSSIN100 MG/5 M PO; +TYLENOL 325MG325 MG PO
[2020-07-06 13:57] VITALS: BP 138/84; PULSE 96; TEMP 98
[2020-07-06 13:58] VITALS: BP 138/84; PULSE 96; TEMP 98
--- NOTE | 2020-07-06 14:04 | NUR ---
Admission B complete. Pt resting in bed. has been in to see pt. Will continue to monitor. Side rails up x2.
[2020-07-06] MEDS ORDERED: CATAPRES0.3 MG PO (14:08)
[2020-07-06] MEDS ORDERED: CELEBREX 200MG200 MG PO (14:13)
[2020-07-07 08:00] VITALS: BP 154/87; PULSE 104; TEMP 99
[2020-07-07 11:51] VITALS: BP 128/92; PULSE 108; TEMP 98.7
--- NOTE | 2020-07-07 12:38 | NUR ---
PATIENT GIVEN PRN PAIN MEDICATION. DR. XIE ADVANCED THE THREE VIRAL AT HIS COLOSTOMY TAKE DOWN SITE. THIS NURSE RE-DRESSED SITE WITH 4X4 GAUZE & HYPAFIX. IV FLUIDS TO INT.
[2020-07-07 12:58] LABS: BASO % 0.2 % (0.0-2.0); GRAN # 14.9 (1.4-6.5); GRAN % 78.8 % (42.2-75.2); HEMOGLOBIN 13.2 g/dl (13.5-18.0); LYMPH # 2.7 (1.2-3.4); LYMPH % 14.2 % (20.0-51.0); MEAN CELL VOLUME 89 fl (80.0-100.0); MEAN CORPUSCULAR HEMOGLOBIN 30 pg (27.0-31.0); MEAN CORPUSCULAR HGB CONC 34 g/dl (33.0-37.0); MEAN PLATELET VOLUME 9.4 fl (7.4-10.4); MONO # 1.2 (0.1-0.6); MONO % 6.3 % (1.7-9.3); PLATELET COUNT 258 K/mm3 (130-400); RED BLOOD COUNT 4.38 M/mm3 (4.20-5.60); REDCELL DISTRIBUTION WIDTH-CV 14.1 % (11.5-14.5)
[2020-07-07 13:23] LABS: CALCIUM 8.7 mg/dL (8.4-10.2); CREATININE, serum 0.82 (0.66-1.25); POTASSIUM 4.6 mmol/L (3.4-5.0)
[2020-07-07 14:13] VITALS: BP 154/87; PULSE 104; TEMP 99
[2020-07-07 15:06] LABS: MAGNESIUM 1.8 mg/dL (1.6-2.3); PHOSPHOROUS 3.8 mg/dL (2.5-4.5)
[2020-07-07 16:48] VITALS: BP 141/88; PULSE 99; TEMP 98.4
--- NOTE | 2020-07-07 20:17 | NUR ---
THE PATIENT HAS BEEN UP AMBULATING IN THE HALLWAYS INDEPENDENTLY THROUGHOUT THE DAY. PRN PAIN MEDICATIONS GIVEN NEEDED, ALTERNATING OXYCODONE AND TRAMADOL WITH IV MORPHINE FOR BREAK THROUGH PAIN. INDWELLING HUDSON DRAINAGE LARGE AMOUNTS OF CLEAR, YELLOW URINE. PATIENT REPORTS BELCHING BUT IS NOT PASSING FLATUS AT THIS TIME. PATIENT TOLERATING A FULL LIQUID DIET WITHOUT ANY DIFFICULTIES. BEDSIDE REPORT GIVEN TO GI ESTRADA.
[2020-07-07 20:27] VITALS: BP 143/97; PULSE 104; TEMP 98.8
--- NOTE | 2020-07-07 21:00 | NUR ---
PATIENT UP AND WALKING THE HALLS. STEADY GAIT, NO DIZZINESS. 5 LAP SITES CLEAN, DRY, AND INTACT. HUDSON DRAINING CLEAR YELLOW URINE. EDEMA ON HIS SCROTUM NOTED. ULTRAM GIVEN FOR PAIN ALONG WITH BEDTIME MEDS. PATIENT DENIES ANY OTHER NEEDS AT THIS TIME. CALL LIGHT IN REACH.
[2020-07-08 00:24] VITALS: BP 106/65; PULSE 94; TEMP 98.3
[2020-07-08 05:14] VITALS: BP 88/45; PULSE 75; TEMP 98.6
--- NOTE | 2020-07-08 05:34 | NUR ---
PATIENT'S BLOOD PRESSURE DROPPED TO 88/45. CALLED DR. RICHARDS AND GOT A PHONE ORDER FOR A FLUID BOLUS. BOLUS IS INFUSING NOW. WILL RECHECK BLOOD PRESSURE AFTER.
[2020-07-08 07:26] LABS: BASO # 0.1 (0.0-0.2); BASO % 0.8 % (0.0-2.0); EOS # 0.2 (0.0-0.7); EOS % 2.1 % (0-4.0); GRAN # 5.1 (1.4-6.5); GRAN % 54.9 % (42.2-75.2); LYMPH # 3.3 (1.2-3.4); MEAN CELL VOLUME 93 fl (80.0-100.0); MEAN CORPUSCULAR HGB CONC 32 g/dl (33.0-37.0); MEAN PLATELET VOLUME 9.2 fl (7.4-10.4); MONO # 0.6 (0.1-0.6); MONO % 6.9 % (1.7-9.3); RED BLOOD COUNT 3.46 M/mm3 (4.20-5.60); REDCELL DISTRIBUTION WIDTH-CV 14.4 % (11.5-14.5)
[2020-07-08 07:43] LABS: ALBUMIN 2.9 gm/dL (3.5-5.0); CALCIUM 8.2 mg/dL (8.4-10.2); CREATININE, serum 0.82 (0.66-1.25); TOTAL PROTEIN 5.5 gm/dL (6.4-8.2)
[2020-07-08 07:45] LABS: HEMATOCRIT 32.1 % (42.0-52.0); HEMOGLOBIN 10.4 g/dl (13.5-18.0); MEAN CORPUSCULAR HEMOGLOBIN 30 pg (27.0-31.0); PLATELET COUNT 153 K/mm3 (130-400)
[2020-07-08 08:00] VITALS: BP 101/68; PULSE 83; TEMP 98.3
--- NOTE | 2020-07-08 08:00 | NUR ---
PATIENT IS A&O. VSS. RATES ABD PAIN AT 5/10. GAVE PRN ROXICODONE TWO TABS WITH AM MEDS. ABD LAP SITES X5 ARE CD&I WITH BANDAIDS, ABD INCISION NOTED DRAINAGE. CHANGED ABD INCISION AND ADVANCED VIRAL PER ORDERS. APPLIED 4X4 AND HYPAFIX TO ABD INCISION. ABD IS ROUND, SOFT AND WITH POSITIVE BOWL SOUNDS. PATIENT IS PASSING GAS AND REPORTS A SMALL INCONTINENT BM LAST NIGHT. NO C/O N/V. LEFT HAND IV TO INT. BREAKFAST TRAY AT BEDSIDE. HUDSON TO DD WITH MOD AMOUNTS OF URINE NOTED. SITE RELIABILITY ENGINEER REPORTED LOW B/P IN THE 80'S AND PATIENT WAS GIVEN FLUID BOLUS. B/P NOW IN THE 100'S SYSTOLIC. PATIENT ENCOURAGED TO TAKE IN ORAL FLUIDS. HEAD TO TOE ASSESSMENT COMPLETE. PATIENT INDEPENDENT IN ROOM. SCD'S CURRENTLY OFF. PATIENT GOING FOR A WALK IN THE HALLS.
--- NOTE | 2020-07-08 08:34 | NUR ---
PATIENT CLEANED UP AND OUT WALKING IN HALLS AGAIN. PATIENT TOLERATING ACTIVITY WELL. GAIT STEADY.
--- NOTE | 2020-07-08 10:25 | NUR ---
Initial visit; Patient thanked Correspondence Dictator for looking in on him and offering Spiritual Care.
--- NOTE | 2020-07-08 11:40 | NUR ---
SW met with the patient to discuss discharge plan. The patient lives in [place] with his [id number], Radha (ph#[phone]), and four children. He reports independence with ADLs and does not have any DME. The patient's PCP is Dr. Allen Reyes on [address] and he receives his medications from [facility]. He reports no difficulties obtaining his meds. The patient does not have a DPOA-HC and he was not interested in completing one at this time. He states that he will be getting soon to [place] (ph#[phone]). The patient plans to return home with his family upon discharge. No additional needs at this time.
[2020-07-08 11:56] VITALS: BP 97/53; PULSE 83; TEMP 98.6
[2020-07-08 16:04] VITALS: BP 125/72; PULSE 99; TEMP 99.1
--- NOTE | 2020-07-08 19:00 | NUR ---
RECEIVED CHANGE OF SHIFT REPORT FROM DAY SHIFT NURSE.
--- NOTE | 2020-07-08 20:24 | NUR ---
PATIENT UP INDEPENDENTLY IN ROOM/HALLS. REQUESTED MEDS FOR NAUSEA AND SCHEDULED PAIN MEDS (EXTRA STRENGTH TYLENOL). DENIES CHEST PAIN/SOA OR NUMBNESS/TINGLING TO EXTREMITIES. SALINE LOCK IN PLACE.
[2020-07-08 20:54] VITALS: BP 105/64; PULSE 92; TEMP 99.1
[2020-07-09] VITALS (7 sets, daily range): BP systolic 89–119; BP diastolic 56–68; PULSE 78–97; TEMP 97.5–99.1
--- NOTE | 2020-07-09 03:03 | NUR ---
PATIENT REQUESTED FOR LOTION TO APPLY TO RECTUM, REPORTING HAD SOME BLOOD. CHECKED WITH PATIENT, CONFIRMING PATIENT OBSERVED SMEAR OF BRIGHT RED BLOOD ON TISSUE WITH WIPING. PATIENT AGREED TO USE LUBRICATING JELLY TO APPLY TO AREA OF NEED AND WILL FOLLOW UP WITH IN AM FOR PROVIDER PREFERENCES.
--- NOTE | 2020-07-09 07:00 | NUR ---
CHANGE OF SHIFT REPORT GIVEN TO DAY SHIFT NURSEADRIANA.
[2020-07-09 07:41] LABS: BASO % 0.3 % (0.0-2.0); EOS # 0.2 (0.0-0.7); EOS % 2.4 % (0-4.0); GRAN # 5.6 (1.4-6.5); GRAN % 56.2 % (42.2-75.2); HEMOGLOBIN 11.2 g/dl (13.5-18.0); LYMPH # 3.5 (1.2-3.4); LYMPH % 35.4 % (20.0-51.0); MEAN CELL VOLUME 95 fl (80.0-100.0); MEAN CORPUSCULAR HEMOGLOBIN 31 pg (27.0-31.0); MEAN CORPUSCULAR HGB CONC 33 g/dl (33.0-37.0); MEAN PLATELET VOLUME 9.1 fl (7.4-10.4); MONO # 0.6 (0.1-0.6); MONO % 5.5 % (1.7-9.3); PLATELET COUNT 169 K/mm3 (130-400); RED BLOOD COUNT 3.64 M/mm3 (4.20-5.60); REDCELL DISTRIBUTION WIDTH-CV 14.1 % (11.5-14.5)
[2020-07-09 07:43] LABS: HEMATOCRIT 34.5 % (42.0-52.0)
[2020-07-09 07:55] LABS: ALBUMIN 3.5 gm/dL (3.5-5.0); BILIRUBIN,TOTAL 0.7 mg/dL (0.0-1.0); CALCIUM 8.3 mg/dL (8.4-10.2); CREATININE, serum 1.01 (0.66-1.25); POTASSIUM 4.3 mmol/L (3.4-5.0); TOTAL PROTEIN 6.2 gm/dL (6.4-8.2)
--- NOTE | 2020-07-09 10:33 | NUR ---
PT INDEPENDENT IN ROOM AND HALLS. ASSESSMENTS COMPLETE, VSS.
--- NOTE | 2020-07-09 13:20 | NUR ---
DISCONTINUED HUDSON CATHETER PER ORDERS, 600 MLS URINE EMPTIED. PT TOLERATED WELL.
[2020-07-09] MEDS ORDERED: ULTRAM 50MG TAB50 MG PO (13:58)
[2020-07-09] MEDS ORDERED: ROXICODONE 55 MG/TAB PO (13:58)
[2020-07-09] MEDS ORDERED: NEURONTIN100 MG/CAP PO (13:59)
--- NOTE | 2020-07-09 19:13 | NUR ---
RECEIVED CHANGE OF SHIFT REPORT FROM DAY SHIFT NURSE.
[2020-07-10 00:02] VITALS: BP 95/56; PULSE 88; TEMP 98.5
[2020-07-10 03:39] VITALS: BP 101/61; PULSE 87; TEMP 99.3
[2020-07-10 07:12] LABS: BASO % 0.2 % (0.0-2.0); EOS # 0.3 (0.0-0.7); EOS % 2.7 % (0-4.0); GRAN # 5.6 (1.4-6.5); LYMPH # 2.7 (1.2-3.4); LYMPH % 29.7 % (20.0-51.0); MEAN CELL VOLUME 93 fl (80.0-100.0); MEAN CORPUSCULAR HEMOGLOBIN 31 pg (27.0-31.0); MEAN CORPUSCULAR HGB CONC 33 g/dl (33.0-37.0); MEAN PLATELET VOLUME 9.3 fl (7.4-10.4); MONO # 0.6 (0.1-0.6); MONO % 6.1 % (1.7-9.3); PLATELET COUNT 167 K/mm3 (130-400); RED BLOOD COUNT 3.26 M/mm3 (4.20-5.60); REDCELL DISTRIBUTION WIDTH-CV 13.7 % (11.5-14.5)
[2020-07-10 07:18] LABS: ALBUMIN 2.9 gm/dL (3.5-5.0); BILIRUBIN,TOTAL 0.8 mg/dL (0.0-1.0); CALCIUM 8.1 mg/dL (8.4-10.2); CREATININE, serum 0.84 (0.66-1.25); POTASSIUM 4.2 mmol/L (3.4-5.0); TOTAL PROTEIN 5.5 gm/dL (6.4-8.2)
--- NOTE | 2020-07-10 07:20 | NUR ---
CHANGE OF SHIFT REPORT GIVEN TO DAY SHIFT NURSEDAVE.
[2020-07-10 07:26] LABS: HEMATOCRIT 30.3 % (42.0-52.0)
--- NOTE | 2020-07-10 08:00 | NUR ---
PATIENT IS A&O. VSS. C/O ABD PAIN RATED 6-7 ON PAIN SCALE. GAVE PRN ROXICODONE, TWO TABS WITH AM MEDS. ABD LAP SITES ARE CD&I WITH STAPLE CLOSURE AND CRISTY. ABD INCISION FROM OSTOMY TAKE-DOWN IS CD&I WITH GAUZE & HYPAFIX. ABD IS TIGHT WITH POSITIVE BOWL SOUNDS. PATIENT IS PASSING GAS AND REPORTS BM. NO C/O N/V. LEFT WRIST IV TO INT. LOW FIBER DIET. HEAD TO TOE ASSESSMENT COMPLETE. NO OTHER NEEDS AT THIS TIME. CALL LIGHT IN REACH.
[2020-07-10 09:08] VITALS: BP 118/71; PULSE 96; TEMP 98.2
--- NOTE | 2020-07-10 12:00 | NUR ---
PATIENT CALLED OUT STATING HE HAD PUT ON HIS CALL LIGHT 45 MIN AGO FOR PAIN MEDS. SURVEY PROJECT MANAGER SAID SHE ONLY RECEIVED ON PHONE CALL FROM THE PATIENT AND THAT WAS JUST 2 MINUTES AGO. PATIENT THEN STATES HE ASKED SOMEONE IN THE [place] BUT DIDN'T KNOW WHO. NONE OF THE NURSING STAFF IS AWARE. PATIENT HAS RECEIVED PRN ROXICODONE & ULTRAM ALREADY TODAY AND IT IS TO EARLY FOR ANOTHER DOSE. PATIENT EDUCATED, AGAIN, ABOUT PAIN MEDICATION FREQUENCY.
--- NOTE | 2020-07-10 13:30 | NUR ---
PATIENT DISCHARGING TO PERSONAL VEHICLE WHERE NANDA' IS WAITING. GAVE DISCHARGE INSTRUCTION, E-SCRIPTS SENT, AND F/U APT DISCUSSED. ANSWERED QUESTIONS/CONCERNS. PATIENT ALSO GIVEN LOTS OF EXTRA ABD DRESSING SUPPLIES. IV ALREADY DC'D. PATIENT DRESSED & PACKED. PATIENT DISCHARGED.
--- NOTE | 2020-07-10 14:16 | NUR ---
Patient is discharging home with his fiancee (07/10 @ 1330). There are no needs for this patient.
== END 2020-07-10 13:30 | disposition home health service (06) | DRG 345 ==
LOC: INPTSU 07-06 12:16 → SURG 07-06 14:30 → JCC 07-06 23:00
PROVIDERS: ADMIT Surgery
PROC: 8E0W4CZ Robotic Assisted Procedure of Trunk Region, Percutaneous Endoscopic Approach (ICD-10-PCS; 2020-07-06)
PROC: 4A1BXSH Monitoring of Gastrointestinal Vascular Perfusion using Indocyanine Green Dye, External Approach (ICD-10-PCS; 2020-07-06)
PROC: 0DSN4ZZ Reposition Sigmoid Colon, Percutaneous Endoscopic Approach (ICD-10-PCS; principal; 2020-07-06 14:30)
DX: Z43.3 Encounter for attention to colostomy (principal); D62 Acute posthemorrhagic anemia; N50.89 Other specified disorders of the male genital organs; Z86.16 Personal history of COVID-19
CPT/HCPCS: OP; A4314; A9284; J0330; J0690; J1100; J1650; J1885; J2270; J2405; J2704; J3010; J7040; J7120

== ENCOUNTER 2020-07-10 20:16 | Inpatient (IN) | payer OTHER ==
[~2020-07-10] VITALS: Ht 180.3 cm; Wt 96.4 kg
[~2020-07-10 20:16] MED LIST changes: +CELEBREX 200MG200 MG PO; +ROXICODONE 55 MG/TAB PO
[2020-07-10 20:53] LABS: BASO % 0.3 % (0.0-2.0); EOS # 0.3 (0.0-0.7); EOS % 1.9 % (0-4.0); GRAN # 9.4 (1.4-6.5); GRAN % 65.1 % (42.2-75.2); LYMPH # 3.8 (1.2-3.4); LYMPH % 25.9 % (20.0-51.0); MEAN CELL VOLUME 90 fl (80.0-100.0); MEAN CORPUSCULAR HGB CONC 33 g/dl (33.0-37.0); MEAN PLATELET VOLUME 9.1 fl (7.4-10.4); MONO # 0.9 (0.1-0.6); MONO % 6.5 % (1.7-9.3); PLATELET COUNT 250 K/mm3 (130-400); RED BLOOD COUNT 4.04 M/mm3 (4.20-5.60); REDCELL DISTRIBUTION WIDTH-CV 13.6 % (11.5-14.5)
[2020-07-10 20:54] LABS: HEMATOCRIT 36.2 % (42.0-52.0); HEMOGLOBIN 12.1 g/dl (13.5-18.0); MEAN CORPUSCULAR HEMOGLOBIN 30 pg (27.0-31.0)
[2020-07-10 20:58] LABS: ALBUMIN 4.1 gm/dL (3.5-5.0); BILIRUBIN,TOTAL 0.9 mg/dL (0.0-1.0); CALCIUM 9.3 mg/dL (8.4-10.2); POTASSIUM 3.9 mmol/L (3.4-5.0); TOTAL PROTEIN 7.3 gm/dL (6.4-8.2)
[2020-07-10 21:08] LABS: COLLECTION METHOD CLEAN CATCH
[2020-07-10 21:14] LABS: PH 7 (5-8); SQUAMOUS EPITHELIAL None Seen /hpf; URINE APPEARANCE Clear; URINE BACTERIA None Seen /hpf; URINE BILIRUBIN Negative (NEGATIVE); URINE BLOOD 2+ (NEGATIVE); URINE COLOR Straw; URINE GLUCOSE Negative (NEGATIVE); URINE KETONE Negative (NEGATIVE); URINE LEUKOCYTE ESTERASE Negative (NEGATIVE); URINE NITRATE Negative (NEGATIVE); URINE PROTEIN(semi-quant) Negative (NEGATIVE); URINE UROBILINOGEN Negative (NEGATIVE)
[2020-07-11] VITALS (8 sets, daily range): BP systolic 98–124; BP diastolic 55–68; PULSE 73–98; TEMP 97.6–98.8
--- NOTE | 2020-07-11 00:25 | NUR ---
ARRIVES FROM ED PER W/C. IS ALERT AND ORIENTED X4.
--- NOTE | 2020-07-11 00:48 | NUR ---
PT MEDICATED WITH DILAUDID 0.25MG IVP AND TRAMADOL 100MG PO FOR RLQ ABD PAIN 02/01. PT HAS IVF INFUSING TO LEFT AC. TAKES HS MEDS WITH MINIMAL WATER. HAS DRSG TO OLD LEFT OSTOMY SITE AND JAMESON TO ABD LAP SITES. NOTED EDEMA TO PENIS. WILL BE NPO.
--- NOTE | 2020-07-11 06:37 | NUR ---
MEDICATED WITH SCHEDULED ES TYLENOL AND OXYCODONE 10MG PO FOR PAIN 02/01. IV ZOSYN INFUSING WITHOUT PROBLEM.
[2020-07-11 06:52] LABS: BASO % 0.3 % (0.0-2.0); EOS # 0.3 (0.0-0.7); EOS % 3.3 % (0-4.0); GRAN # 4.5 (1.4-6.5); GRAN % 51.5 % (42.2-75.2); HEMOGLOBIN 10.7 g/dl (13.5-18.0); LYMPH # 3.1 (1.2-3.4); LYMPH % 36.2 % (20.0-51.0); MEAN CELL VOLUME 94 fl (80.0-100.0); MEAN CORPUSCULAR HEMOGLOBIN 30 pg (27.0-31.0); MEAN CORPUSCULAR HGB CONC 32 g/dl (33.0-37.0); MEAN PLATELET VOLUME 9.4 fl (7.4-10.4); MONO # 0.7 (0.1-0.6); MONO % 8.4 % (1.7-9.3); PLATELET COUNT 211 K/mm3 (130-400); RED BLOOD COUNT 3.56 M/mm3 (4.20-5.60); REDCELL DISTRIBUTION WIDTH-CV 13.8 % (11.5-14.5)
[2020-07-11 06:58] LABS: HEMATOCRIT 33.4 % (42.0-52.0)
[2020-07-11 07:02] LABS: ALBUMIN 3.2 gm/dL (3.5-5.0); CALCIUM 8.5 mg/dL (8.4-10.2); CREATININE, serum 0.97 (0.66-1.25); POTASSIUM 3.9 mmol/L (3.4-5.0); TOTAL PROTEIN 6.1 gm/dL (6.4-8.2)
--- NOTE | 2020-07-11 09:40 | NUR ---
PATIENTS SHIFT ASSESSMENT COMPLETE. PRN PO PAIN MEDICATION GIVEN AT THIS TIME. PATIENT CURRENTLY RESTING IN BED. PATIENT HAS BEEN UP AMBULATING IN THE HALLWAYS INDEPENDENTLY THIS MORNING. CALL LIGHT WITHIN REACH. NO OTHER NEEDS AT THIS TIME.
--- NOTE | 2020-07-11 11:23 | NUR ---
Patient discharged last night and returned in the morning with a fever and complaints of pain. Patient currently has no fever. Scans show no changes. Patient complains of pain in IV site. No changes to prior intake information. Patient plans to return home.
--- NOTE | 2020-07-11 12:55 | NUR ---
PATIENT COMPLAINING OF NAUSEA AFTER EATING HIS LUNCH. PRN IV ZOFRAN GIVEN. WILL CONTINUE TO MONITOR.
--- NOTE | 2020-07-11 17:09 | NUR ---
PATIENT PROVIDED WITH PO PAIN MEDICATIONS AND IV NAUSEA MEDICATION NEEDED THROUGHOUT THE SHIFT. PATIENT RESTING COMFORTABLY IN BED. CALL LIGHT WITHIN REACH. WILL REPORT OFF TO ONCOMING NURSE.
--- NOTE | 2020-07-11 18:20 | NUR ---
PATIENT CALLED OUT REQUESTING NAUSEA MEDICATION. TOO SOON FOR ANOTHER DOSE OF IV ZOFRAN. NOTIFIED. TORB FOR PHENERGAN 12.5MG Q6H PRN ALTERNATING WITH ZOFRAN FROM TO THIS NURSE.
--- NOTE | 2020-07-11 19:07 | NUR ---
PATIENT EDUCATED NUMEROUS TIME THROUGHOUT THE SHIFT TO TAKE HIS ORAL INTAKE SLOWLY DUE TO THE AMOUNT OF NAUSEA AND PAIN HE IS HAVING. PATIENT CONTINUED TO DRINK AND EAT WITH DISREGARD TO NURSING EDUCATION. WHEN PATIENT WAS GIVEN IV PHENERGAN THIS NURSE EDUCATED THE PATIENT AGAIN IN REGARDS TO TAKING PO INTAKE SLOWLY. PATIENT ATE HALF OF DINNER AND REFUSED THE REST. THIS NURSE SPOKE WITH ABOUT THE PERSISTENT NAUSEA. SAID TO HAVE THE PATIENT SLOW DOWN ON PO INTAKE. THIS NURSE PASSED ONTO INFORMATION TO GI GRADY WHO WILL BE CARING FOR THE PATIENT THIS EVENING.
--- NOTE | 2020-07-11 20:30 | NUR ---
PT IN BED, IS ALERT AND ORIENTED X4. REPORTS RLQ PAIN 8/10. MEDICATED WITH HS MEDS INCLUDING OXYCODONE 10MG PO AT THIS TIME. DRSG TO OLD OSTOMY SITE CHANGED, JAMESON INTACT, GAUZE DRSG REAPPLIED. VOIDING PER URINAL. REPORTS BM JUST BEFORE THIS NURSE ARRIVED TO ROOM. LAP SITES WITH JAMESON INTACT. IV SITE TO LEFT AC. FLAT AFFECT NOTED.
--- NOTE | 2020-07-11 21:45 | NUR ---
REPORTS NAUSEA, ZOFRAN 4MG IVP GIVEN.
--- NOTE | 2020-07-11 22:30 | NUR ---
MEDICATED WITH TRAMADOL 100MG PO FOR PAIN 6/10 TO RLQ, WORSE WITH ACTIVITY.
--- NOTE | 2020-07-12 | NUR ---
ES TYLENOL HELD PT WAS FINALLY ASLEEP.
--- NOTE | 2020-07-12 01:57 | NUR ---
Medicated with Oxycodone 10mg po for pain 02/01 to RLQ.
[2020-07-12 03:08] VITALS: BP 99/62; PULSE 76; TEMP 98.6
--- NOTE | 2020-07-12 04:04 | NUR ---
Pt reports nausea, no emesis and pain to RLQ. Medicated with Zofran 4mg IVP and Tramadol 100mg po at this time.
--- NOTE | 2020-07-12 06:35 | NUR ---
MEDICATED WITH OXYCODONE 10MG PO FOR RLQ PAIN 02/01.
[2020-07-12 07:33] LABS: BASO % 0.2 % (0.0-2.0); EOS # 0.3 (0.0-0.7); EOS % 3.3 % (0-4.0); GRAN % 58.3 % (42.2-75.2); LYMPH # 2.5 (1.2-3.4); LYMPH % 29.5 % (20.0-51.0); MEAN CELL VOLUME 93 fl (80.0-100.0); MEAN CORPUSCULAR HGB CONC 33 g/dl (33.0-37.0); MEAN PLATELET VOLUME 9.3 fl (7.4-10.4); MONO # 0.7 (0.1-0.6); MONO % 8.2 % (1.7-9.3); PLATELET COUNT 205 K/mm3 (130-400); RED BLOOD COUNT 3.11 M/mm3 (4.20-5.60); REDCELL DISTRIBUTION WIDTH-CV 13.6 % (11.5-14.5)
[2020-07-12 07:43] LABS: HEMOGLOBIN 9.5 g/dl (13.5-18.0); MEAN CORPUSCULAR HEMOGLOBIN 31 pg (27.0-31.0)
[2020-07-12 07:59] LABS: CALCIUM 8.1 mg/dL (8.4-10.2); CREATININE, serum 0.91 (0.66-1.25); POTASSIUM 4.1 mmol/L (3.4-5.0)
[2020-07-12 08:47] VITALS: BP 112/78; PULSE 85; TEMP 98.4
--- NOTE | 2020-07-12 09:04 | NUR ---
Patient out to ambulated out to desk. Upset. Wanting his Zofran, Will be medicated per orders. Reports he has been waiting for 2 hours. Even with nausea patient is eating his breakfast trays. Pain continues. He does seem diaphoretic at times. His bowels working. Ostomy reversal site CDI. Carl intact.
--- NOTE | 2020-07-12 09:24 | NUR ---
Called update given, I also spoke to no new orders at this time. to see patient in a few hours.
--- NOTE | 2020-07-12 09:51 | NUR ---
Initial visit; Patient thanked Marker Delivery for stopping by and keeping him in her prayers.
[2020-07-12 12:17] VITALS: BP 118/70; PULSE 80; TEMP 98.3
[2020-07-12 16:53] VITALS: BP 124/82; PULSE 78; TEMP 98.8
--- NOTE | 2020-07-12 17:59 | NUR ---
Patient feeling much better this evening after toradol dose, rating pain 3/10. He denies nausea at this time, he is not requesting any medications at this time. He had a CT scan this afternoon. Called to make him aware of the radiologist completing dictatation. Patient has been voiding adequately, but will continue IVF per orders. He will try full liquids for dinner. Will monitor
--- NOTE | 2020-07-12 19:35 | NUR ---
At bedside shift report patient reports elevated nausea after pudding for dinner. Patient also request pain medication. Medication per orders. Report to Bel for needle maker.
--- NOTE | 2020-07-12 20:00 | NUR ---
PATIENT RESTING IN BED. REPORTS THAT HE WAS UP WALKING EARLIER. SOME COMPLAINTS OF NAUSEA AND PAIN. HE DOESN'T HAVE MUCH OF AN APPETITE AND ONLY ATE PUDDING FOR DINNER.
[2020-07-12 20:12] VITALS: BP 126/75; PULSE 61; TEMP 98.1
[2020-07-13] VITALS (7 sets, daily range): BP systolic 11–128; BP diastolic 46–73; PULSE 62–86; TEMP 97.7–99.9
[2020-07-13 07:45] LABS: BASO % 0.3 % (0.0-2.0); EOS # 0.4 (0.0-0.7); EOS % 4.2 % (0-4.0); GRAN # 5.5 (1.4-6.5); GRAN % 62.9 % (42.2-75.2); HEMOGLOBIN 10.8 g/dl (13.5-18.0); LYMPH # 2.2 (1.2-3.4); LYMPH % 24.7 % (20.0-51.0); MEAN CELL VOLUME 92 fl (80.0-100.0); MEAN CORPUSCULAR HEMOGLOBIN 30 pg (27.0-31.0); MEAN CORPUSCULAR HGB CONC 33 g/dl (33.0-37.0); MEAN PLATELET VOLUME 9.1 fl (7.4-10.4); MONO # 0.7 (0.1-0.6); MONO % 7.4 % (1.7-9.3); PLATELET COUNT 241 K/mm3 (130-400); RED BLOOD COUNT 3.61 M/mm3 (4.20-5.60); REDCELL DISTRIBUTION WIDTH-CV 13.3 % (11.5-14.5)
[2020-07-13 07:47] LABS: HEMATOCRIT 33.2 % (42.0-52.0)
[2020-07-13 08:00] LABS: ALBUMIN 3.3 gm/dL (3.5-5.0); BILIRUBIN,TOTAL 0.8 mg/dL (0.0-1.0); CALCIUM 8.3 mg/dL (8.4-10.2); CREATININE, serum 0.96 (0.66-1.25); POTASSIUM 4.3 mmol/L (3.4-5.0); TOTAL PROTEIN 6.1 gm/dL (6.4-8.2)
--- NOTE | 2020-07-13 11:10 | NUR ---
PT RESTING IN BED REQUESTING PAIN MEDS FOR PAIN 02/01. RLQ IS AREA PT IS COMPLAINING OF. ASSESSMENTS COMPLETE, PO PAIN MEDS GIVEN. PT EATING AND DRINKING. NO NAUSEA OR VOMITING.
--- NOTE | 2020-07-13 20:13 | NUR ---
Pt assessment complete. Pt is sitting up in bed upon entry, he is A/O x4. His breathing is even and unlabored on RA. Pt denies SOB. Some nausea at this time, PRN Zofran administered. Pain tolerable at this time. See assessment for surgical sites. IVF infusing without complications. POC discussed with patient, call light within reach.
[2020-07-14] VITALS (7 sets, daily range): BP systolic 107–137; BP diastolic 67–73; PULSE 56–73; TEMP 87–100.4
--- NOTE | 2020-07-14 06:35 | NUR ---
Pt slept most of the night. Did report some pain to RLQ, reports having a soft/watery stool this am. Does not report any nausea at this time. IVF infusing.
[2020-07-14 07:44] LABS: BASO % 0.4 % (0.0-2.0); EOS # 0.3 (0.0-0.7); EOS % 3.9 % (0-4.0); GRAN # 5.2 (1.4-6.5); GRAN % 62.3 % (42.2-75.2); HEMOGLOBIN 10.6 g/dl (13.5-18.0); LYMPH # 2.2 (1.2-3.4); LYMPH % 26.2 % (20.0-51.0); MEAN CELL VOLUME 92 fl (80.0-100.0); MEAN CORPUSCULAR HEMOGLOBIN 30 pg (27.0-31.0); MEAN CORPUSCULAR HGB CONC 32 g/dl (33.0-37.0); MONO # 0.6 (0.1-0.6); MONO % 6.8 % (1.7-9.3); PLATELET COUNT 276 K/mm3 (130-400); RED BLOOD COUNT 3.59 M/mm3 (4.20-5.60); REDCELL DISTRIBUTION WIDTH-CV 13.2 % (11.5-14.5)
[2020-07-14 07:54] LABS: ALBUMIN 3.1 gm/dL (3.5-5.0); BILIRUBIN,TOTAL 0.5 mg/dL (0.0-1.0); CALCIUM 8.2 mg/dL (8.4-10.2); CREATININE, serum 0.99 (0.66-1.25); POTASSIUM 4.2 mmol/L (3.4-5.0); TOTAL PROTEIN 5.8 gm/dL (6.4-8.2)
--- NOTE | 2020-07-14 09:07 | NUR ---
PT INDEPENDENT IN HALLS AND ROOM. AM LABS IMPROVING, PAIN CONTROLLED WITH PO MEDS. ABDOMINAL INCISIONS CDI.
--- NOTE | 2020-07-14 22:00 | NUR ---
Pt currently resting in bed.Pt did request something for pain and each time he was given something for pain.Pt has his call light within reach and has been indepedent in his room.
[2020-07-15] VITALS: BP 130/81; PULSE 67; TEMP 98.2
--- NOTE | 2020-07-15 01:00 | NUR ---
Pt is currently resting in bed. He stated that his pain is better and he has been able to rest.
[2020-07-15 04:08] VITALS: BP 103/65; PULSE 69; TEMP 98.3
[2020-07-15 06:39] LABS: BASO % 0.5 % (0.0-2.0); EOS # 0.4 (0.0-0.7); EOS % 4.4 % (0-4.0); GRAN # 4.7 (1.4-6.5); HEMOGLOBIN 10.3 g/dl (13.5-18.0); LYMPH # 2.5 (1.2-3.4); LYMPH % 29.3 % (20.0-51.0); MEAN CELL VOLUME 92 fl (80.0-100.0); MEAN CORPUSCULAR HEMOGLOBIN 30 pg (27.0-31.0); MEAN CORPUSCULAR HGB CONC 33 g/dl (33.0-37.0); MONO # 0.8 (0.1-0.6); MONO % 9.1 % (1.7-9.3); PLATELET COUNT 282 K/mm3 (130-400); RED BLOOD COUNT 3.41 M/mm3 (4.20-5.60); REDCELL DISTRIBUTION WIDTH-CV 13.3 % (11.5-14.5)
[2020-07-15 06:42] LABS: HEMATOCRIT 31.5 % (42.0-52.0)
[2020-07-15 06:49] LABS: ALBUMIN 3.2 gm/dL (3.5-5.0); CALCIUM 8.4 mg/dL (8.4-10.2); CREATININE, serum 0.98 (0.66-1.25); PHOSPHOROUS 4.3 mg/dL (2.5-4.5); POTASSIUM 3.9 mmol/L (3.4-5.0)
--- NOTE | 2020-07-15 07:27 | NUR ---
Reported off to GI Cassidy. Pt has his call light within reach and requested something for pain when her gets his morning medications. He has his call light within reach.
[2020-07-15 08:01] VITALS: BP 111/63; PULSE 75; TEMP 98.8
--- NOTE | 2020-07-15 08:43 | NUR ---
PATIENT AM SHIFT ASSESSMENT COMPLETE. AM MEDICATIONS AND PAIN MEDICATIONS GIVEN AT THIS TIME. PATIENT RESTING IN BED. CALL LIGHT IN REACH. PATIENT DENIES ANY NEEDS AT THIS TIME.
[2020-07-15 11:10] VITALS: BP 119/70; PULSE 74; TEMP 98.4
--- NOTE | 2020-07-15 13:37 | NUR ---
PATIENT ADMISSION ASSESSMENT AND SCREENINGS COMPLETE. PATIENT IS ANXIOUS AND TEARFUL UPON ENTRY TO THE ROOM. TACHYCARDIA NOTED, OTHERWISE VSS. PATIENT REPORTING HIS PAIN A 5/10 ON A 0-10 SCALE. PATIENT REPORTS THAT IT IS A TOLERABLE LEVEL FOR HIM. IV FLUIDS RUNNING TO THE LEFT AC IV VIA PUMP. CONSENT FORM SIGNED AND PLACED ON PATIENTS CHART. PATIENT GIVEN PRIVACY PASS CODE. CALL LIGHT WITHIN REACH. PATIENT DENIES ANY OTHER NEEDS AT THIS TIME.
--- NOTE | 2020-07-15 14:55 | NUR ---
IN ROOM PERFORMING BEDSIDE PROCEDURE.
[2020-07-15] MEDS ORDERED: AMOXICILLIN 8751 TAB PO (15:36)
[2020-07-15] MEDS ORDERED: NEURONTIN100 MG/CAP PO (15:36)
[2020-07-15 16:00] VITALS: BP 126/79; PULSE 87; TEMP 98.9
--- NOTE | 2020-07-15 16:00 | NUR ---
PATIENTS RIGHT HAND INT DISCONTINUED PER PENDING DISCHARGE. TIP INTACT. PATIENT TOLERATED WELL.
--- NOTE | 2020-07-15 17:10 | NUR ---
DISCHARGE INSTRUCTIONS REVIEWED WITH PATIENT. QUESTIONS SOUGHT AND ANSWERED. PATIENT PERSONAL BELONGINGS GATHERED. AWAITING PATIENT RIDE FOR DISCHARGE.
--- NOTE | 2020-07-15 18:05 | NUR ---
PATIENT TAKEN TO PERSONAL VEHICLE BY SURGICAL STAFF. PATIENT DISCHARGED.
== END 2020-07-15 18:05 | disposition home or self-care (01) | DRG 855 ==
LOC: COL.ER 20:16 → SURG 07-11 00:08
PROVIDERS: Emergency Medicine; Surgery; ADMIT Surgery
PROC: 0WJF0ZZ Inspection of Abdominal Wall, Open Approach (ICD-10-PCS; principal; 2020-07-15)
DX: R50.82 Postprocedural fever (principal); R10.9 Unspecified abdominal pain; R11.2 Nausea with vomiting, unspecified; T37.3X5A Adverse effect of other antiprotozoal drugs, initial encounter; Z86.16 Personal history of COVID-19
CPT/HCPCS: OP; A9284; G0378; J1170; J1650; J1885; J2405; J2543; J2550; J3480; J7042; J7120; Q9967

== ENCOUNTER 2020-12-21 07:03 | Day surgery (SDC) | payer OTHER ==
[~2020-12-21] VITALS: Ht 180.3 cm; Wt 99.0 kg
[2020-12-21] MEDS ORDERED: ZYRTEC 10MG10 MG PO (07:43)
[2020-12-21] MEDS ORDERED: ATARAX 10MG10 MG/TAB PO (07:45)
[2020-12-21] MEDS ORDERED: CELEBREX 200MG200 MG PO (07:46)
[2020-12-21] MEDS ORDERED: KLONOPIN 0.5MG0.5 MG PO (07:47)
[2020-12-21] MEDS ORDERED: DESYREL 100MG100 MG PO (07:48)
[2020-12-21] MEDS ORDERED: MELATIN 3 MG-11 TAB PO (07:49)
[2020-12-21] MEDS ORDERED: LEXAPRO20 MG PO (07:50)
[2020-12-21] MEDS ORDERED: NEURONTIN100 MG/CAP PO (07:51)
[2020-12-21 07:54] VITALS: BP 119/71; PULSE 71; TEMP 97.8
[2020-12-21] MEDS ORDERED: Zantac (08:26)
[2020-12-21] MEDS ORDERED: PERCOCET 325 MG1 TA2 PO (11:34)
[2020-12-21] MEDS ORDERED: MOTRIN 600600 MG/TAB PO (11:35)
[2020-12-21 12:05] VITALS: BP 130/72; PULSE 67; TEMP 98.2
[2020-12-21 12:15] VITALS: BP 128/90; PULSE 80
--- NOTE | 2020-12-21 12:15 | NUR ---
Patient reclined in bed. Drowsy, but easy to wake. Patient reports 7/10. O2 saturation at 96% on 1L, will continue to monitor. Patient is tolerating food and drink well.
--- NOTE | 2020-12-21 12:22 | NUR ---
Patient returned to bay [facility] via cart. Vital signs obtained. O2 sat at 100% on 2L, decreased to 1L. Insicion is dry and intact, closed with glue. Patient reports pain of 8/10, given food and drink to make sure no N/V. Patient begins to fall alseep whenever I am not speaking to him. Will continue to monitor.
[2020-12-21 12:30] VITALS: BP 112/75; PULSE 77
--- NOTE | 2020-12-21 12:30 | NUR ---
Patient semi fowlers, alert and oriented. Tolerating food and drink well. Patient reports 7/10 pain. Patient removed nasal cannula and mainatined 96% O2 . Patient agrees to try oral pain medication and then get up to bathroom. brought back to bedside.
[2020-12-21 12:45] VITALS: BP 129/78; PULSE 80
--- NOTE | 2020-12-21 12:50 | NUR ---
Patient siiting up on edge of bed. Removed 20G IV with no complications. Reviewed dishcarge instructions and education materials with patient and , bother verbalized understanding. Instructed patient to dress and then call for transportation.
--- NOTE | 2020-12-21 13:20 | NUR ---
Transfered patient via wheelchair to personal vehicle accompanied by .
--- NOTE | 2020-12-21 13:45 | NUR ---
Patient up to bathroom, able to void. Patient reports pain, but request to go home. States he is comfortable controling pain at home with prescribed pain medications.
== END 2020-12-21 13:20 ==
LOC: SDCO 07:03
DX: K43.2 Incisional hernia without obstruction or gangrene (principal); M19.90 Unspecified osteoarthritis, unspecified site; M54.9 Dorsalgia, unspecified; G89.29 Other chronic pain; G47.33 Obstructive sleep apnea (adult) (pediatric); F32.9 Major depressive disorder, single episode, unspecified; F41.9 Anxiety disorder, unspecified; F43.10 Post-traumatic stress disorder, unspecified; Z99.89 Dependence on other enabling machines and devices; Z79.899 Other long term (current) drug therapy; Z86.16 Personal history of COVID-19; Z87.891 Personal history of nicotine dependence; Z79.891 Long term (current) use of opiate analgesic; Z90.49 Acquired absence of other specified parts of digestive tract; Z80.0 Family history of malignant neoplasm of digestive organs; Z80.8 Family history of malignant neoplasm of other organs or systems; Z82.49 Family history of ischemic heart disease and other diseases of the circulatory system
CPT/HCPCS: C1781; J0330; J1100; J1170; J2175; J2405; J2550; J2704; J3010; J7120